=== PATIENT | female | born 1940 | race Caucasian/White ===

== ENCOUNTER → 2017-07-25 07:20 | Outpatient (CLI) | payer MEDICARE, SELFPAY ==
[2017-07-25 08:01] LABS: Alanine Aminotransferase 22 U/L (12-78); Albumin Level 3.8 gm/dL (3.4-5.0); Alkaline Phosphatase 110 U/L (46-116); Anion Gap 11.9 mEq/L (5-15); Aspartate Amino Transferase 16 U/L (15-37); Bilirubin,Total 0.5 mg/dL (0.2-1.0); Blood Urea Nitrogen 19 mg/dL (7-18); Calcium 9.2 mg/dL (8.5-10.1); Carbon Dioxide 26 mmol/L (21.0-32.0); Chloride 106 mmol/L (98-107); Chol/HDL Ratio 1.8 (1-3.5); Cholesterol 155 mg/dL (140-200); Creatinine,Serum 0.99 mg/dL (0.55-1.02); Estimated Glomerular Filt Rate 55 ml/min (>60); GFR (African American) 66 ML/MIN (>60); Globulin 3.7 gm/dl (1.3-3.2); Glucose 118 mg/dL (74-106); HDL Cholesterol 88 mg/dL (29-89); LDL Cholesterol 45 mg/dL (0-130); Potassium 3.9 mmoL/L (3.5-5.1); Sodium 140 mmol/L (136-145); Thyroid Stimulating Hormone 0.81 uIU/ml (0.358-3.740); Total Protein,Serum 7.5 gm/dL (6.4-8.2); Triglycerides 108 mg/dL (30-200); VLDL Cholesterol 22 mg/dL (0-40)
[2017-07-25 08:37] LABS: Hemoglobin A1C 6.3 % (0.0-7.0)
== END ==
PROVIDERS: Visit Provider Family Medicine
DX: E11.9 Type 2 diabetes mellitus without complications (principal); E03.9 Hypothyroidism, unspecified; E78.2 Mixed hyperlipidemia
CPT/HCPCS: 36415; 80053; 80061; 83036; 84443

== ENCOUNTER → 2018-01-25 07:02 | Outpatient (CLI) | payer MEDICARE, SELFPAY ==
[2018-01-25 08:18] LABS: Hemoglobin A1C 6.6 % (0.0-7.0)
[2018-01-25 08:19] LABS: Alanine Aminotransferase 23 U/L (12-78); Albumin Level 3.8 gm/dL (3.4-5.0); Albumin/Globulin Ratio 1.1 (1.1-1.8); Alkaline Phosphatase 107 U/L (46-116); Anion Gap 14.3 mEq/L (5-15); Aspartate Amino Transferase 17 U/L (15-37); Bilirubin,Total 0.6 mg/dL (0.2-1.0); Blood Urea Nitrogen 16 mg/dL (7-18); Calcium 9.3 mg/dL (8.5-10.1); Carbon Dioxide 26 mmol/L (21.0-32.0); Chloride 108 mmol/L (98-107); Chol/HDL Ratio 1.8 (1-3.5); Cholesterol 168 mg/dL (140-200); Creatinine,Serum 1.18 mg/dL (0.55-1.02); Estimated Glomerular Filt Rate 45 ml/min (>60); GFR (African American) 54 ML/MIN (>60); Globulin 3.4 gm/dl (1.3-3.2); Glucose 106 mg/dL (74-106); HDL Cholesterol 91 mg/dL (29-89); LDL Cholesterol 54 mg/dL (0-130); Potassium 4.3 mmoL/L (3.5-5.1); Sodium 144 mmol/L (136-145); Thyroid Stimulating Hormone 0.69 uIU/ml (0.358-3.740); Total Protein,Serum 7.2 gm/dL (6.4-8.2); Triglycerides 115 mg/dL (30-200); VLDL Cholesterol 23 mg/dL (0-40)
== END ==
PROVIDERS: PCP Family Medicine; Visit Provider Family Medicine
DX: E11.9 Type 2 diabetes mellitus without complications (principal); E78.2 Mixed hyperlipidemia; E03.9 Hypothyroidism, unspecified
CPT/HCPCS: 36415; 80053; 80061; 83036; 84443

== ENCOUNTER → 2018-07-30 07:03 | Outpatient (CLI) | payer MEDICARE, SELFPAY ==
[2018-07-30 08:25] LABS: Alanine Aminotransferase 18 U/L (12-78); Albumin Level 3.7 gm/dL (3.4-5.0); Albumin/Globulin Ratio 1.1 (1.1-1.8); Alkaline Phosphatase 108 U/L (46-116); Anion Gap 14.9 mEq/L (5-15); Aspartate Amino Transferase 17 U/L (15-37); Bilirubin,Total 0.4 mg/dL (0.2-1.0); Blood Urea Nitrogen 22 mg/dL (7-18); Calcium 9.2 mg/dL (8.5-10.1); Carbon Dioxide 27 mmol/L (21.0-32.0); Chloride 105 mmol/L (98-107); Chol/HDL Ratio 1.9 (1-3.5); Cholesterol 168 mg/dL (140-200); Creatinine,Serum 0.99 mg/dL (0.55-1.02); Estimated Glomerular Filt Rate 55 ml/min (>60); GFR (African American) 66 ML/MIN (>60); Globulin 3.4 gm/dl (1.3-3.2); Glucose 106 mg/dL (74-106); HDL Cholesterol 90 mg/dL (29-89); LDL Cholesterol 60 mg/dL (0-130); Potassium 3.9 mmoL/L (3.5-5.1); Sodium 143 mmol/L (136-145); Thyroid Stimulating Hormone 0.59 uIU/ml (0.358-3.740); Total Protein,Serum 7.1 gm/dL (6.4-8.2); Triglycerides 92 mg/dL (30-200); VLDL Cholesterol 18 mg/dL (0-40)
[2018-07-30 11:16] LABS: Hemoglobin A1C 6.6 % (0.0-7.0)
== END ==
PROVIDERS: Visit Provider Family Medicine
DX: E11.9 Type 2 diabetes mellitus without complications (principal); E78.2 Mixed hyperlipidemia; E03.9 Hypothyroidism, unspecified
CPT/HCPCS: 36415; 80053; 80061; 83036; 84443

== ENCOUNTER → 2019-01-30 07:22 | Outpatient (CLI) | payer MEDICARE, SELFPAY ==
[2019-01-30 08:09] LABS: Hemoglobin A1C 6.5 % (0.0-7.0)
[2019-01-30 08:45] LABS: Alanine Aminotransferase 19 U/L (12-78); Albumin Level 3.8 gm/dL (3.4-5.0); Albumin/Globulin Ratio 1.1 (1.1-1.8); Alkaline Phosphatase 101 U/L (46-116); Anion Gap 14.1 mEq/L (5-15); Aspartate Amino Transferase 22 U/L (15-37); Bilirubin,Total 0.6 mg/dL (0.2-1.0); Blood Urea Nitrogen 20 mg/dL (7-18); Calcium 9.3 mg/dL (8.5-10.1); Carbon Dioxide 27 mmol/L (21.0-32.0); Chloride 105 mmol/L (98-107); Chol/HDL Ratio 2.1 (1-3.5); Cholesterol 177 mg/dL (140-200); Creatinine,Serum 1.02 mg/dL (0.55-1.02); Estimated Glomerular Filt Rate 53 ml/min (>60); GFR (African American) 64 ML/MIN (>60); Globulin 3.4 gm/dl (1.3-3.2); Glucose 101 mg/dL (74-106); HDL Cholesterol 84 mg/dL (29-89); LDL Cholesterol 71 mg/dL (0-130); Potassium 4.1 mmoL/L (3.5-5.1); Sodium 142 mmol/L (136-145); Thyroid Stimulating Hormone 0.38 uIU/ml (0.358-3.740); Total Protein,Serum 7.2 gm/dL (6.4-8.2); Triglycerides 111 mg/dL (30-200); VLDL Cholesterol 22 mg/dL (0-40)
== END ==
PROVIDERS: Visit Provider Family Medicine
DX: E11.9 Type 2 diabetes mellitus without complications (principal); E78.2 Mixed hyperlipidemia; E03.9 Hypothyroidism, unspecified
CPT/HCPCS: 36415; 80053; 80061; 83036; 84443

== ENCOUNTER → 2019-08-01 07:11 | Outpatient (CLI) | payer MEDICARE, SELFPAY ==
[2019-08-01 11:31] LABS: Alanine Aminotransferase 14 U/L (12-78); Albumin Level 4.2 g/dl (3.5-5.0); Albumin/Globulin Ratio 1.5 (1.1-1.8); Alkaline Phosphatase 108 U/L (38-126); Anion Gap 13.3 mEq/L (5-15); Aspartate Amino Transferase 26 U/L (14-36); Bilirubin,Total 0.5 mg/dl (0.2-1.3); Blood Urea Nitrogen 22 mg/dl (7-17); Calcium 9.8 mg/dl (8.4-10.2); Carbon Dioxide 25 mmol/L (22.0-30.0); Chloride 106 mmol/L (98-107); Chol/HDL Ratio 1.9 (1-3.5); Cholesterol 174 mg/dl (140-200); Estimated Glomerular Filt Rate 61 ml/min (>60); GFR (African American) 73 ML/MIN (>60); Globulin 2.8 g/dL (1.3-3.2); Glucose 106 mg/dl (74-100); HDL Cholesterol 93 mg/dl (40-60); Potassium 4.3 mmoL/L (3.5-5.1); Sodium 140 mmol/L (136-145); Triglycerides 134 mg/dl (30-150); VLDL Cholesterol 27 mg/dL (0-40)
[2019-08-01 11:43] LABS: Direct LDL Cholesterol 64.25 mg/dL (100-129)
[2019-08-01 12:01] LABS: Thyroid Stimulating Hormone 0.75 uIU/mL (0.465-4.68)
[2019-08-01 13:36] LABS: Hemoglobin A1C 6.6 % (4.0-6.0)
== END ==
PROVIDERS: Visit Provider Family Medicine
DX: E03.9 Hypothyroidism, unspecified (principal); E11.9 Type 2 diabetes mellitus without complications; E78.2 Mixed hyperlipidemia
CPT/HCPCS: 36415; 80053; 80061; 83036; 84443

== ENCOUNTER → 2020-02-19 07:03 | Outpatient (CLI) | payer MEDICARE, SELFPAY ==
[2020-02-19 08:38] LABS: Chloride 106 mmol/L (98-107); Potassium 4.3 mmoL/L (3.5-5.1); Sodium 142 mmol/L (136-145)
[2020-02-19 08:41] LABS: Alanine Aminotransferase 18 U/L (12-78); Albumin Level 4.1 g/dl (3.5-5.0); Albumin/Globulin Ratio 1.4 (1.1-1.8); Alkaline Phosphatase 104 U/L (38-126); Anion Gap 15.3 mEq/L (5-15); Aspartate Amino Transferase 32 U/L (14-36); Bilirubin,Total 0.8 mg/dl (0.2-1.3); Blood Urea Nitrogen 23 mg/dl (7-17); Calcium 9.7 mg/dl (8.4-10.2); Carbon Dioxide 25 mmol/L (22.0-30.0); Chol/HDL Ratio 1.9 (1-3.5); Cholesterol 166 mg/dl (140-200); Estimated Glomerular Filt Rate 54 ml/min (>60); GFR (African American) 65 ML/MIN (>60); Glucose 114 mg/dl (74-100); HDL Cholesterol 88 mg/dl (40-60); Total Protein,Serum 7.1 g/dl (6.3-8.2); Triglycerides 138 mg/dl (30-150); VLDL Cholesterol 28 mg/dL (0-40)
[2020-02-19 08:52] LABS: Direct LDL Cholesterol 57.72 mg/dL (100-129)
[2020-02-19 09:13] LABS: Thyroid Stimulating Hormone 0.32 uIU/mL (0.465-4.68)
[2020-02-19 10:03] LABS: Hemoglobin A1C 6.6 % (4.0-6.0)
== END ==
PROVIDERS: Visit Provider Family Medicine
DX: E03.9 Hypothyroidism, unspecified (principal); E78.2 Mixed hyperlipidemia; E11.9 Type 2 diabetes mellitus without complications
CPT/HCPCS: 36415; 80053; 80061; 83036; 84443

== ENCOUNTER → 2021-08-12 07:03 | Outpatient (CLI) | payer MEDICARE, SELFPAY ==
[2021-08-12 09:17] LABS: Alanine Aminotransferase 15 U/L (12-78); Albumin Level 4.2 g/dl (3.5-5.0); Albumin/Globulin Ratio 1.6 (1.1-1.8); Alkaline Phosphatase 104 U/L (38-126); Anion Gap 10.2 mEq/L (5-15); Aspartate Amino Transferase 26 U/L (14-36); Bilirubin,Total 0.6 mg/dl (0.2-1.3); Blood Urea Nitrogen 25 mg/dl (7-17); Calcium 9.3 mg/dl (8.4-10.2); Carbon Dioxide 27 mmol/L (22.0-30.0); Chloride 108 mmol/L (98-107); Chol/HDL Ratio 1.7 (1-3.5); Cholesterol 162 mg/dl (140-200); Estimated Glomerular Filt Rate 60 ml/min (>60); GFR (African American) 73 ML/MIN (>60); Globulin 2.6 g/dL (1.3-3.2); Glucose 103 mg/dl (74-100); HDL Cholesterol 95 mg/dl (40-60); Potassium 4.2 mmoL/L (3.5-5.1); Sodium 141 mmol/L (136-145); Total Protein,Serum 6.8 g/dl (6.3-8.2); Triglycerides 106 mg/dl (30-150); VLDL Cholesterol 21 mg/dL (0-40)
[2021-08-12 09:28] LABS: Direct LDL Cholesterol 44.74 mg/dL (100-129)
[2021-08-12 09:48] LABS: Thyroid Stimulating Hormone 1.65 uIU/mL (0.465-4.68)
[2021-08-12 09:50] LABS: Hemoglobin A1C 6.2 % (4.0-6.0)
== END ==
PROVIDERS: Visit Provider Family Medicine
DX: E03.9 Hypothyroidism, unspecified (principal); E78.2 Mixed hyperlipidemia; E11.9 Type 2 diabetes mellitus without complications
CPT/HCPCS: 36415; 80053; 80061; 83036; 84443

== ENCOUNTER → 2022-02-14 07:08 | Outpatient (CLI) | payer MEDICARE, SELFPAY ==
[2022-02-14 08:30] LABS: Alanine Aminotransferase 16 U/L (12-78); Albumin Level 3.8 g/dl (3.5-5.0); Albumin/Globulin Ratio 1.4 (1.1-1.8); Alkaline Phosphatase 112 U/L (38-126); Anion Gap 14.6 mEq/L (5-15); Aspartate Amino Transferase 28 U/L (14-36); Bilirubin,Total 0.8 mg/dl (0.2-1.3); Blood Urea Nitrogen 19 mg/dl (7-17); Calcium 9.1 mg/dl (8.4-10.2); Carbon Dioxide 25 mmol/L (22.0-30.0); Chloride 105 mmol/L (98-107); Chol/HDL Ratio 1.5 (1-3.5); Cholesterol 130 mg/dl (140-200); Estimated Glomerular Filt Rate 53 ml/min (>60); GFR (African American) 65 ML/MIN (>60); Globulin 2.8 g/dL (1.3-3.2); Glucose 105 mg/dl (74-100); HDL Cholesterol 85 mg/dl (40-60); Potassium 3.6 mmoL/L (3.5-5.1); Sodium 141 mmol/L (136-145); Total Protein,Serum 6.6 g/dl (6.3-8.2); Triglycerides 89 mg/dl (30-150); VLDL Cholesterol 18 mg/dL (0-40)
[2022-02-14 08:35] LABS: Hemoglobin A1C 5.9 % (4.0-6.0)
[2022-02-14 08:42] LABS: Direct LDL Cholesterol < 30.00 mg/dL (100-129)
[2022-02-14 09:00] LABS: Thyroid Stimulating Hormone 0.96 uIU/mL (0.465-4.68)
== END ==
PROVIDERS: PCP Family Medicine; Visit Provider Family Medicine
DX: E03.9 Hypothyroidism, unspecified (principal); E11.9 Type 2 diabetes mellitus without complications; E78.2 Mixed hyperlipidemia; R03.0 Elevated blood-pressure reading, without diagnosis of hypertension
CPT/HCPCS: 36415; 80053; 80061; 83036; 84443

== ENCOUNTER 2022-04-30 00:23 | Emergency (ER) | payer MEDICARE, SELFPAY ==
[2022-04-30 00:25] VITALS: BP 163/75; PULSE 113; RESP 16; TEMP 36.6; O2SAT 96; BMI 26.6
--- NOTE | 2022-04-30 01:02 | XR_ITS ---
PROCEDURE INFORMATION: Exam: XR Chest Exam date and time: 04/30/2022 1:24 AM Age: 81 years old Clinical indication: Other: Weakness TECHNIQUE: Imaging protocol: Radiologic exam of the chest. Views: 1 view. COMPARISON: No relevant prior studies available. FINDINGS: Lungs: Left retrocardiac lung is not well evaluated. Otherwise, there is no consolidation. No mass. Pleural spaces: Unremarkable. No pleural effusion. No pneumothorax. Heart/Mediastinum: Moderate hiatal hernia is suspected. Calcified left mediastinal lymph node. The heart is not enlarged. Vasculature: Unremarkable. Bones/joints: There is a moderate scoliosis of the midthoracic spine convex right. Other findings: The patient is rotated to the left. IMPRESSION: 1. There is no acute cardiopulmonary finding. The left retrocardiac region is not well evaluated. 2. Suspected moderate hiatal hernia. 3. Thoracic scoliosis.
[2022-04-30 01:10] LABS: Basophils % 0.5 % (0.1-2.0); Eosinophils # 0.1 K/mm3 (0.0-0.4); Eosinophils % 0.9 % (0.1-12.0); Hematocrit 37.4 % (37.0-47.0); Hemoglobin 12.3 g/dL (12.2-16.2); Lymphocytes # 2.1 K/mm3 (0.7-4.5); Lymphocytes % 26.1 % (10-50); Mean Corpuscular Hemoglobin 28.9 pg (27.0-31.2); Mean Corpuscular Volume 87.4 fl (81-99); Mean Platelet Volume 8.3 fl (7.4-10.4); Monocytes # 0.4 K/mm3 (0.1-1.0); Monocytes % 4.8 % (1.7-9.3); Neutrophils # 5.5 K/mm3 (1.8-7.8); Neutrophils % 67.7 % (37.0-80.0); Platelet Count 385 K/mm3 (142-424); Red Blood Count 4.28 M/mm3 (4.20-5.40); Red Cell Distribution Width 15.4 % (11.5-17.5); White Blood Count 8.2 K/mm3 (4.8-10.8)
[2022-04-30 01:17] LABS: Anion Gap 14.2 mEq/L (5-15); Blood Urea Nitrogen 23 mg/dl (7-17); Calcium 9.6 mg/dl (8.4-10.2); Carbon Dioxide 26 mmol/L (22.0-30.0); Chloride 103 mmol/L (98-107); Creatinine Clearance Estimated 53 mL/min (50-200); Estimated Glomerular Filt Rate 60 ml/min (>60); GFR (African American) 73 ML/MIN (>60); Glucose 110 mg/dl (74-100); Potassium 3.2 mmoL/L (3.5-5.1); Sodium 140 mmol/L (136-145)
[2022-04-30 01:37] LABS: Troponin I < 0.01 ng/ml (0.00-0.034)
--- NOTE | 2022-04-30 01:38 | ECG_ITS ---
APPROVED REPORT Exam: Resting ECG HR:89 bpm ECG Measurements Heart Rate 89 AXES AL 137 P 57 QRSd 88 QRS 38 QT 374 T 30 QTc 421 Conclusion SINUS RHYTHM WITH OCCASIONAL ECTOPIC PREMATURE COMPLEXES NONSPECIFIC T-WAVE ABNORMALITY BORDERLINE ECG UNCONFIRMED REPORT Electronically signed by : Enrique Epstein MD 04/30/2022 10:07:20
--- NOTE | 2022-04-30 01:50 | HMH.EDGENADL ---
Discharge Plan Disposition Patient Disposition: Home, Self-Care Condition: Good Prescriptions Prescriptions: No Action metformin 500 mg tablet 500 mg PO BID Label Comments: TAKE 1 TABLET BY MOUTH ONCE DAILY simvastatin 40 mg tablet 40 mg PO DAILY Label Comments: TAKE 1 TABLET BY MOUTH ONCE DAILY AT BEDTIME levothyroxine 75 mcg tablet 1 mcg PO DAILY Label Comments: TAKE 1 TABLET BY MOUTH ONCE DAILY Referrals Follow up/Referrals: Vitor Greenfield MD [Primary Care Provider] - See instructions Activity Restrictions/Add. Instructions Additional Instructions/Restrictions: Continue to take as much food and drink as you can tolerate to prevent dehydration. If you have any other concerning signs or symptoms, return to the emergency department for further evaluation, or your primary care provider. Make sure to see your primary care doctor within 72 hours to establish care for this visit to the emergency department and ensure improvement of symptoms. Clinical Impressions Clinical Impression: Acute dehydration, Acute hypokalemia Instructions Patient Instructions: DI for Diarrhea and Traveler's Diarrhea -- Adult, DI for Diarrhea and Traveler's Diarrhea -- Child, DI for Nausea -- Adult, DI for Nausea -- Child Discharge ED Provider: Aj Shin General Adult HPI General Chief complaint: Nausea/Vomiting/Diarrhea Stated complaint: diarrhea, possible dehydration Time Seen by Provider: 04/30/22 00:30 Mode of Arrival: Family Vehicle Source of Information: Patient Limitations: No Limitations Description of Symptoms (Recalled from ER Triage Doc. by RN): 81 yo female presents with CC of possible dehydration. Daughter reports that patient was diagnosed with COVID approx 10 days ago and has developed diarrhea as a result. Patient has neglected to maintain hydration because she can't make it to the bathroom in time . Patient appears a&ox3. Verbal, speech is clear. Skin w/d,pale pink. No dyspnea/angina/active vomiting or fever. Skin turgor poor at time of triage. History of Present Illness HPI narrative: This is an 81-year-old female with history of hypothyroidism, diabetes, hyperlipidemia, hypertension presenting with weakness and dehydration. Patient's daughter is at bedside and helps with history. Per patient, she has been having multiple bowel movements over the past couple of days that are nonbloody, nonbilious, normal in color and firm, but are happening far more frequently than usual. She has not wanted to go to the bathroom anymore, so she has stopped eating and drinking so much because it goes right through me. Daughter states that patient has been refusing to take p.o. intake whether fluids or solids out of concern for having bowel movements. Because of this, patient has been using objects around the house to help her ambulate, complaining of feeling weak. Patient has not had fevers, chills, nausea, vomiting, dysuria, hematuria, frankly bloody stools, dark-colored stools, diarrhea, any sick contacts, recent medication changes, or any other concerning history. Related Data Home Medications Medication Instructions Recorded Confirmed levothyroxine 75 mcg tablet 1 mcg PO DAILY thyroid 04/30/22 04/30/22 metformin 500 mg tablet 500 mg PO BID Diabetes 04/30/22 04/30/22 simvastatin 40 mg tablet 40 mg PO DAILY Cholesterol 04/30/22 04/30/22 Allergies Allergy/AdvReac Type Severity Reaction Status Date / Time No Known Allergies Allergy Verified 04/30/22 01:27 [facility] Disclaimer: The information contained in this section may have been updated after the patient was seen, as this information can be updated by other users. Social History Smoking Status: Never smoker alcohol intake: never current occupational status: unemployed Travel in the last 8 weeks: None ROS Obtained: Yes All systems reviewed & no additional complaints except as documented Physical Exam Genera
[2022-04-30 02:59] VITALS: BP 145/79; PULSE 100; RESP 16; TEMP 36.6; O2SAT 96
== END 2022-04-30 03:02 | disposition home or self-care (01) ==
PROVIDERS: Emergency Provider Emergency Medicine; PCP Family Medicine
DX: E87.6 Hypokalemia (principal); E86.0 Dehydration; Z79.84 Long term (current) use of oral hypoglycemic drugs; Z79.899 Other long term (current) drug therapy; E03.9 Hypothyroidism, unspecified; E11.9 Type 2 diabetes mellitus without complications; E78.5 Hyperlipidemia, unspecified; I10 Essential (primary) hypertension
CPT/HCPCS: 71045; 80048; 84484; 85025; 93005; 96365; 99284

== ENCOUNTER 2022-05-05 01:03 | Inpatient (IN) | payer MEDICARE, SELFPAY ==
[2022-05-05] VITALS (20 sets, daily range): BP systolic 106–149; BP diastolic 59–87; PULSE 58–162; RESP 15–22; TEMP 36.4–36.8; O2SAT 95–98; BMI 25.7; BMI 24.9
--- NOTE | 2022-05-05 01:08 | XR_ITS ---
PROCEDURE INFORMATION: Exam: XR Chest Exam date and time: 05/05/2022 1:34 AM Age: 81 years old Clinical indication: Other: Generalized weakness TECHNIQUE: Imaging protocol: Radiologic exam of the chest. Views: 1 view. COMPARISON: CR XR CHEST PORTABLE 04/30/2022 1:24 AM FINDINGS: Lungs: Lung volumes are mildly improved. There is mild increase in strandy densities in the left lower lobe since prior exam. Lungs are otherwise stable. Pleural spaces: No pleural effusions or appreciable adenopathy. Negative for pneumothorax. Heart/Mediastinum: Cardiac silhouette and pulmonary vasculature are within range of normal. Moderate hiatal hernia is stable. Calcified mediastinal lymph nodes indicate prior granulomatous disease. Bones/joints: There is no evidence of acute fracture. There is a mild S-shaped thoracolumbar scoliosis. IMPRESSION: 1. Mildly improved lung volumes. 2. Mild increase in strandy densities in the left lower lobe. 3. Stable small to moderate hiatal hernia.
--- NOTE | 2022-05-05 01:16 | HMH.EDWEAK ---
Discharge Plan Disposition Patient Disposition: Admitted As Inpatient Chief Complaint: Weakness Clinical Impressions Clinical Impression: Atrial fibrillation with rapid ventricular response, Hypothyroidism, COVID-19 Discharge ED Provider: Gabriel Solorzano HPI General Chief complaint: Weakness Stated complaint: weakness Time Seen by Provider: 05/05/22 01:16 Mode of Arrival: Ambulatory Source of Information: Patient Limitations: No Limitations Description of Symptoms (Recalled from ER Triage Doc. by RN): pt c/o weakness pt denies any pain n/v/d. pt was seen in er on 04/30 for dehydration and low potassium. History of Present Illness HPI Narrative: not feeling well tonight w/o chest pain - recent ed visit and has pos covid-19 at home - no known hx of a fib MD Complaint: generalized weakness Onset (ago): hour(s) Duration: intermittent Migration: none Severity: moderate Associated symptoms: denies other symptoms Related Data Home Medications Medication Instructions Recorded Confirmed levothyroxine 75 mcg tablet 75 mcg PO DAILY thyroid 04/30/22 05/05/22 metformin 500 mg tablet 500 mg PO BID Diabetes 04/30/22 05/05/22 simvastatin 40 mg tablet 40 mg PO DAILY Cholesterol 04/30/22 05/05/22 Allergies Allergy/AdvReac Type Severity Reaction Status Date / Time No Known Allergies Allergy Verified 04/30/22 01:27 [facility] Disclaimer: The information contained in this section may have been updated after the patient was seen, as this information can be updated by other users. Social History (Updated 04/30/22 @ 02:52 by Aj Shin MD) Smoking Status: Never smoker alcohol intake: never current occupational status: unemployed Travel in the last 8 weeks: None ROS Obtained: Yes All systems reviewed & no additional complaints except as documented Physical Exam General General appearance: alert Head Head exam: normocephalic Eye Eye exam: Present PERRL and EOMI ENT ENT exam: Present mucous membranes dry Neck Neck exam: Present trachea midline Respiratory Respiratory exam: Present normal lung sounds bilaterally; Absent respiratory distress Cardiovascular Cardiovascular exam: Present irregular rhythm, systolic murmur and +S4 Abdominal Exam Abdominal exam: Present soft Extremities Exam Extremities exam: Absent calf tenderness Neurological Exam Neurological exam: Present alert and CN II-XII intact Psychiatric Psychiatric exam: Present normal affect Skin Skin exam: Absent rash Medical Decision Making Medical Records Medical records reviewed: Yes I reviewed the patient's medical records. Tim Inquiry Pt receiving controlled substance: No Vital Signs: 05/05/22 01:03 05/05/22 01:30 05/05/22 01:45 Temperature 97.6 F Temperature Source Oral Pulse Rate 115 H 107 H Pulse Rate [Right] 93 H Respiratory Rate 16 16 17 Blood Pressure 128/65 131/74 Blood Pressure [Right Arm] 136/64 Blood Pressure Mean 106 93 Blood Pressure Mean [Right Arm] 88 02 Sat by Pulse Oximetry 96 97 96 05/05/22 02:00 Temperature Temperature Source Pulse Rate 109 H Pulse Rate [Right] Respiratory Rate 16 Blood Pressure 129/76 Blood Pressure [Right Arm] Blood Pressure Mean 92 Blood Pressure Mean [Right Arm] 02 Sat by Pulse Oximetry 96 Lab Data Lab results reviewed: Yes I reviewed the patient's lab results. Lab Results 05/05/22 01:10: WBC 8.3, RBC 4.55, Hgb 12.8, Hct 40.8, MCV 89.6, MCH 28.1, MCHC 31.3 L, RDW 15.3, Plt Count 600 H, MPV 8.5, Neut % (Auto) 66.8, Lymph % (Auto) 25.0, [place] % (Auto) 5.1, Eos % (Auto) 2.4, Baso % (Auto) 0.8, Neut # (Auto) 5.5, Lymph # (Auto) 2.1, [place] # (Auto) 0.4, Eos # (Auto) 0.2, Baso # (Auto) 0.1, ESR 22 05/05/22 01:10: Sodium 140, Potassium 3.2 L, Chloride 104, Carbon Dioxide 25, Anion Gap 14.2, BUN 13, Creatinine 0.90, Estimated Creat Clear 48, Estimated GFR 60, Est GFR ( Amer) 73, Glucose 115 H, Calcium 9.5, Total Bilirubin 0.9, AST 26, ALT 17,
[2022-05-05 01:18] LABS: Influenza A, PCR Not Detected (NotDetected); Influenza B, PCR Not Detected (NotDetected)
[2022-05-05 01:18] LABS: Basophils # 0.1 K/mm3 (0-0.2); Basophils % 0.8 % (0.1-2.0); Eosinophils # 0.2 K/mm3 (0.0-0.4); Eosinophils % 2.4 % (0.1-12.0); Hematocrit 40.8 % (37.0-47.0); Hemoglobin 12.8 g/dL (12.2-16.2); Lymphocytes # 2.1 K/mm3 (0.7-4.5); Mean Corpuscular HGB Conc 31.3 g/dL (31.8-35.4); Mean Corpuscular Hemoglobin 28.1 pg (27.0-31.2); Mean Corpuscular Volume 89.6 fl (81-99); Mean Platelet Volume 8.5 fl (7.4-10.4); Monocytes # 0.4 K/mm3 (0.1-1.0); Monocytes % 5.1 % (1.7-9.3); Neutrophils # 5.5 K/mm3 (1.8-7.8); Neutrophils % 66.8 % (37.0-80.0); Platelet Count 600 K/mm3 (142-424); Red Blood Count 4.55 M/mm3 (4.20-5.40); Red Cell Distribution Width 15.3 % (11.5-17.5); White Blood Count 8.3 K/mm3 (4.8-10.8)
--- NOTE | 2022-05-05 01:19 | PC.NURSE ---
Dr. Solorzano at speaking with pt/family at this time.
--- NOTE | 2022-05-05 01:22 | PC.NURSE ---
RAD at for CXR
[2022-05-05 01:27] LABS: Alanine Aminotransferase 17 U/L (12-78); Albumin Level 4.2 g/dl (3.5-5.0); Albumin/Globulin Ratio 1.3 (1.1-1.8); Alkaline Phosphatase 130 U/L (38-126); Anion Gap 14.2 mEq/L (5-15); Aspartate Amino Transferase 26 U/L (14-36); Bilirubin,Total 0.9 mg/dl (0.2-1.3); Blood Urea Nitrogen 13 mg/dl (7-17); Calcium 9.5 mg/dl (8.4-10.2); Carbon Dioxide 25 mmol/L (22.0-30.0); Chloride 104 mmol/L (98-107); Creatinine Clearance Estimated 48 mL/min (50-200); Estimated Glomerular Filt Rate 60 ml/min (>60); GFR (African American) 73 ML/MIN (>60); Globulin 3.3 g/dL (1.3-3.2); Glucose 115 mg/dl (74-100); Lactic Acid 1.6 mmol/L (0.7-2.1); Potassium 3.2 mmoL/L (3.5-5.1); Sodium 140 mmol/L (136-145); Total Protein,Serum 7.5 g/dl (6.3-8.2)
[2022-05-05 01:32] LABS: C-Reactive Protein 13.4 mg/L (0-4)
[2022-05-05 01:41] LABS: Troponin I < 0.01 ng/ml (0.00-0.034)
[2022-05-05 01:42] LABS: Coronavirus 19, PCR Detected (NotDetected)
[2022-05-05 01:45] LABS: Procalcitonin 0.148 ng/mL (0.0-2.0)
[2022-05-05 02:00] LABS: Thyroid Stimulating Hormone 0.75 uIU/mL (0.465-4.68)
[2022-05-05 02:03] LABS: Erythrocyte Sedimentation Rate 22 mm/hr (0-30)
--- NOTE | 2022-05-05 02:10 | PC.NURSE ---
Dr. Solorzano on phone with Dr. Epstein.
--- NOTE | 2022-05-05 02:11 | PC.NURSE ---
Patient admitted to [address] Epstein [address] Dr[address] Sahu with admitting dx of new onset of a-fib.
[2022-05-05 02:40] LABS: Microscopic, Urine URINE MICROSCOPIC (MICROSCOPIC)
[2022-05-05 02:42] LABS: Appearance,Urine CLEAR (Clear); Bilirubin,Urine Negative (Negative); Blood, Urine Negative (Negative); Color,Urine YELLOW (Yellow); Glucose,Urine (UA) Negative (Negative); Ketones,Urine Negative (Negative); Leukocyte Esterase,Urine Negative (Negative); Nitrate,Urine Negative (Negative); Protein,Urine Negative (Negative); Specific Gravity, Urine 1.015 (1.005-1.030); Urobilinogen,Urine 0.2 EU/dl (0.2)
[2022-05-05 02:56] LABS: NT Pro Brain Natriuretic Pep. 168 pg/mL (0-450)
[2022-05-05 03:14] LABS: Bacteria,Urine Trace /lpf; WBC,Urine Occasional #/hpf (0-3)
--- NOTE | 2022-05-05 03:42 | ECG_ITS ---
APPROVED REPORT Exam: Resting ECG HR:125 bpm ECG Measurements Heart Rate 125 AXES QRSd 87 QRS 7 QT 279 T -29 QTc 353 Conclusion ATRIAL FIBRILLATION WITH RAPID VENTRICULAR RESPONSE MODERATE VOLTAGE CRITERIA FOR LVH, CONSIDER NORMAL VARIANT [MEETS CRITERIA IN ONE OF: R(aVL), S(V1), R(V5), R(V5/V6)+S(V1)] NONSPECIFIC ST & T-WAVE ABNORMALITY ABNORMAL RHYTHM ECG UNCONFIRMED REPORT Electronically signed by : Enrique Epstein MD 05/06/2022 16:52:51
--- NOTE | 2022-05-05 03:56 | ECG_ITS ---
APPROVED REPORT Exam: Resting ECG HR:78 bpm ECG Measurements Heart Rate 78 AXES AK 154 P 45 QRSd 93 QRS 31 QT 388 T 34 QTc 421 Conclusion SINUS RHYTHM WITH OCCASIONAL VENTRICULAR PREMATURE COMPLEXES BORDERLINE ECG UNCONFIRMED REPORT Electronically signed by : Enrique Epstein MD 05/06/2022 16:52:40
--- NOTE | 2022-05-05 04:07 | PC.NURSE ---
Pt noted to convert from afib to NSR. EKG obtained and confirmed NSR with PVCs. Lucian notified. New orders received to given Diltiazem PO 60 mg now and turn gtt off in one hour.
[2022-05-05 06:32] LABS: Chloride 106 mmol/L (98-107)
[2022-05-05 06:33] LABS: Potassium 3.3 mmoL/L (3.5-5.1); Sodium 140 mmol/L (136-145)
[2022-05-05 06:36] LABS: Anion Gap 13.3 mEq/L (5-15); Blood Urea Nitrogen 10 mg/dl (7-17); Calcium 8.8 mg/dl (8.4-10.2); Carbon Dioxide 24 mmol/L (22.0-30.0); Creatinine Clearance Estimated 47 mL/min (50-200); Estimated Glomerular Filt Rate 69 ml/min (>60); GFR (African American) 84 ML/MIN (>60); Glucose 103 mg/dl (74-100); Magnesium 1.9 mg/dl (1.6-2.3)
[2022-05-05 06:37] LABS: Basophils % 0.4 % (0.1-2.0); Eosinophils # 0.1 K/mm3 (0.0-0.4); Eosinophils % 0.7 % (0.1-12.0); Hematocrit 34.9 % (37.0-47.0); Lymphocytes # 1.2 K/mm3 (0.7-4.5); Lymphocytes % 12.3 % (10-50); Mean Corpuscular HGB Conc 32.5 g/dL (31.8-35.4); Mean Corpuscular Hemoglobin 28.3 pg (27.0-31.2); Mean Corpuscular Volume 87.2 fl (81-99); Mean Platelet Volume 8.5 fl (7.4-10.4); Monocytes # 0.5 K/mm3 (0.1-1.0); Monocytes % 5.5 % (1.7-9.3); Neutrophils # 7.7 K/mm3 (1.8-7.8); Neutrophils % 81.1 % (37.0-80.0); Platelet Count 535 K/mm3 (142-424); Red Blood Count 4.01 M/mm3 (4.20-5.40); Red Cell Distribution Width 15.3 % (11.5-17.5); White Blood Count 9.5 K/mm3 (4.8-10.8)
[2022-05-05 06:38] LABS: Hemoglobin 11.4 g/dL (12.2-16.2)
[2022-05-05 07:08] LABS: POC Glucose,Bedside 111 (70-110)
--- NOTE | 2022-05-05 08:00 | CA_ITS ---
APPROVED REPORT EXAM: Comprehensive 2D, Doppler, and color-flow Echocardiogram Eye Glass Frame Polisher: Suzan Sanders CRT Ht: 5 ft 4 in Wt: 150lbs BSA: 1.73 BP: 129/76 mmHg Indications: Covid +,Atrial Fibrillation, Diabetes, Hyperlipidemia 2D Dimensions LVOT 1.90 cm (M/F) 1.5-2.5 LA Volume 34.40 mL LA Volume Index 19.40 mL/m2 (M/F) 16-34 M-Mode Dimensions RVDd 2.52 cm (0.9-2.6) LA Diam 2.47 cm (1.9-4.0) LVDd 4.41 cm (3.5-5.7) Ao Diam 3.64 cm (2.0-3.7) LVDs 2.96 cm (3.5-5.7) IVSd 1.36 cm (0.6-1.1) PWd 0.72 cm (0.6-1.1) EF (Teich) 61.60% FS 32.90% EDV (Teich) 88.20 mL TAPSE 2.22 (<1.7) ESV (Teich) 33.90 mL LV Diastology E Decel Time 217.00 (160-240 msec) E/A Ratio 0.72 MED E' 8.10 (< 7 cm/sec) MED A' 12.90 cm/s E'/MED E' Ratio 8.10 (>14) LAT E' 6.80 (<10 cm/sec) LAT A' 12.80 cm/s E/LAT E' Ratio 9.65 (>14) Aortic Valve AI PHT 658.00 ms AO Peak GR. 7.30 mmHg Mitral Valve MV A Velocity 91.00 (40-130 cm/s) E/A Ratio 0.72 MV Decel. Time 217.00 (160-240 ms) Pulmonary Valve PV Peak Velocity 116.00 (50-150 cm/s) Tricuspid Valve TR P. Velocity 337.00 cm/s RAP Estimate 10.00 mmHg RVSP 55.50 mmHg Left Ventricle Left atrium is mildly enlarged, left ventricle is normal size mild concentric left ventricular hypertrophy, estimated ejection fraction 55% with no regional wall motion abnormality, grade 1 diastolic dysfunction seen without tissue Doppler evidence of raise left atrial pressure. Right Ventricle Right atrium and right ventricle are normal size and contractility. Aortic Valve Aortic valve is minimally thickened and fibrosed there is no aortic stenosis, there is trace aortic insufficiency. Mitral Valve Mitral valve is grossly normal, there is trace mitral regurgitation Tricuspid Valve Tricuspid valve grossly normal, there is trace tricuspid regurgitation, tricuspid regurgitation jet velocity is inadequate for calculation of the right ventricular systolic pressure. Pulmonic Valve Pulmonic valve is poorly visualized Great Vessels Aortic root is normal size. Pericardium No significant pericardial effusion noted. Inferior vena cava is normal size with normal inspiratory collapse. Conclusion 1. Mildly enlarged left atrium, normal left ventricular size, mild concentric left ventricular hypertrophy, estimated ejection fraction 55% with no regional wall motion abnormality, grade 1 diastolic dysfunction seen without tissue Doppler evidence of raise left atrial pressure. 2. Trace aortic, mitral and tricuspid regurgitation. 3. No significant pericardial effusion noted. 4. Inferior vena cava is normal size with normal inspiratory collapse. Electronically signed by : Mikael Jung MD 05/06/2022 08:51:51
--- NOTE | 2022-05-05 08:44 | EXP.HP ---
History of Present Illness *Admission Date: 05/05/22 *Reason for visit:: nausea, feeling bad *History of present illness: Ms. Millard is an 81-year-old female who tested positive for COVID the Monday after Thanks. Her daughter states that she had a very mild course of COVID with mainly just sinus congestion and a cough. She states she has not wanted to eat or drink since having COVID and last Monday, began feeling poorly and was taken to the emergency room. All testing was normal except for her potassium, which was low. She was given potassium in the ER and sent home. Her daughter states the past few days she has woken up feeling nauseated and weak. She has also had some lower abdominal pain and felt the need to urinate but could not. She brought her to the emergency room again yesterday. She was found at that time to be in A. fib with RVR with a rate of 150. She was admitted and started on a Cardizem drip. A catheter was placed and she had quite a bit of output. Her daughter states she converted to normal sinus rhythm this morning. Her Cardizem drip has been discontinued and she has remained in normal sinus rhythm. At this time she feels well. She still does not want to eat. [facility] Medical History (Updated 05/05/22 @ 09:05 by Erik Sahu MD) Diabetes Hyperlipidemia Hypothyroidism Surgical History History of cholecystectomy Family History No significant family history Social History Smoking Status: Former smoker alcohol intake: never current occupational status: unemployed Travel in the last 8 weeks: None Review of Systems Constitutional Constitutional: Denies body ache(s), Denies chills, Reports fatigue, Denies fever(s), Denies headache(s) and Reports weakness Eyes Eyes: Denies blurry vision and Denies diplopia ENT Ears, Nose, Mouth, and Throat: Denies headache(s), Reports nasal congestion, Denies sore throat and Denies vertigo *Cardiovascular Cardiovascular: Denies chest pain and Denies dyspnea *Respiratory Respiratory: Denies dyspnea *Gastrointestinal Gastrointestinal: Denies abdominal pain, Reports nausea and Denies vomiting *Genitourinary Genitourinary: Reports difficulty voiding *Musculoskeletal Musculoskeletal: Denies arthralgias and Denies myalgias *Neurologic Neurologic: Denies headache(s), Denies vertigo and Reports weakness Endocrine Endocrine: Reports fatigue Meds Home Medications and Allergies Home Medications Medication Instructions Recorded Confirmed Type levothyroxine 75 mcg tablet 75 mcg PO DAILY thyroid 04/30/22 05/05/22 History metformin 500 mg tablet 500 mg PO BID Diabetes 04/30/22 05/05/22 History simvastatin 40 mg tablet 40 mg PO DAILY Cholesterol 04/30/22 05/05/22 History New Prescriptions to Start Prescriptions: Allergies Allergy/AdvReac Type Severity Reaction Status Date / Time No Known Allergies Allergy Verified 04/30/22 01:27 Exam Data for Last 24 hours Vital signs and Labs for Last 24 Hours: Temp Pulse Resp BP Pulse Ox 97.7 F 90 16 149/87 H 96 05/05/22 03:30 05/05/22 06:00 05/05/22 06:00 05/05/22 06:00 05/05/22 06:00 Laboratory Results - last 24 hr 05/05/22 01:10: WBC 8.3, RBC 4.55, Hgb 12.8, Hct 40.8, MCV 89.6, MCH 28.1, MCHC 31.3 L, RDW 15.3, Plt Count 600 H, MPV 8.5, Neut % (Auto) 66.8, Lymph % (Auto) 25.0, [place] % (Auto) 5.1, Eos % (Auto) 2.4, Baso % (Auto) 0.8, Neut # (Auto) 5.5, Lymph # (Auto) 2.1, [place]nn # (Auto) 0.4, Eos # (Auto) 0.2, Baso # (Auto) 0.1, ESR 22 05/05/22 01:10: Sodium 140, Potassium 3.2 L, Chloride 104, Carbon Dioxide 25, Anion Gap 14.2, BUN 13, Creatinine 0.90, Estimated Creat Clear 48, Estimated GFR 60, Est GFR ( Amer) 73, Glucose 115 H, Calcium 9.5, Total Bilirubin 0.9, AST 26, ALT 17, Alkaline Phosphatase 130 H, Troponin I < 0.01, C-React
--- NOTE | 2022-05-05 09:23 | EXP.CARD.CON ---
History of Present Illness History of Present Illness Consult date: 05/05/22 Requesting physician: Erik Sahu Chief complaint: Weakness, unable to void, nausea and decreased appetite Additional Medical History:: Significant past medical history: Diabetes mellitus Hyperlipidemia Hypothyroidism History of present illness: 81-year-old white female with above past medical history presented to emergency department last night with daughter with complaints of generalized weakness, decreased appetite, and inability to void. Daughter reports patient was diagnosed with COVID on the Monday after Thanksgi. States her symptoms were pretty mild with just mainly sinus congestion and a cough. Daughter reports since then patient has had decreased appetite and generalized weakness. Last Monday patient began to feel poorly and was taken to the ER and diagnosed with hypokelemia and dehydration. Patient was given potassium in ER and DC'd home. Since then has continued to have generalized weakness and nausea. Yesterday patient started complaining of lower abdominal pressure and inability to void prompting a second ER eval. Upon presentation to ER patient was found to be in A. fib RVR with a rate of 150. Patient was started on Cardizem drip and admitted for further evaluation. Shortly after being placed on Cardizem drip patient converted to normal sinus rhythm. Patient and daughter denies history of A. fib. Patient denies symptoms of chest pain shortness of breath or palpitations. Chest x-ray negative for acute cardiopulmonary process. Significant labs as follow: Hemoglobin 11.4, platelet count 535, potassium 3.3 Free T4 2.3, creatinine 0.8, and COVID positive on 05/04/2020. This morning patient remains in normal sinus rhythm with a rate in the 70s, continues to deny symptoms. [facility] Disclaimer: The information contained in this section may have been updated after the patient was seen, as this information can be updated by other users. Medical History (Updated 05/05/22 @ 09:05 by Erik Sahu MD) Diabetes Hyperlipidemia Hypothyroidism Surgical History History of cholecystectomy Family History No significant family history Social History Smoking Status: Former smoker alcohol intake: never current occupational status: unemployed Travel in the last 8 weeks: None Review of Systems Constitutional Constitutional: Denies headache(s) and Reports weakness ENT Ears, Nose, Mouth, and Throat: Denies headache(s) and Denies vertigo *Neurologic Neurologic: Denies headache(s), Denies vertigo and Reports weakness Exam Data for Last 24 hours Vital signs and Labs for Last 24 Hours: Temp Pulse Resp BP Pulse Ox 97.7 F 90 16 149/87 H 96 05/05/22 08:00 05/05/22 06:00 05/05/22 06:00 05/05/22 06:00 05/05/22 06:00 Laboratory Results - last 24 hr 05/05/22 01:10: WBC 8.3, RBC 4.55, Hgb 12.8, Hct 40.8, MCV 89.6, MCH 28.1, MCHC 31.3 L, RDW 15.3, Plt Count 600 H, MPV 8.5, Neut % (Auto) 66.8, Lymph % (Auto) 25.0, [place] % (Auto) 5.1, Eos % (Auto) 2.4, Baso % (Auto) 0.8, Neut # (Auto) 5.5, Lymph # (Auto) 2.1, [place] # (Auto) 0.4, Eos # (Auto) 0.2, Baso # (Auto) 0.1, ESR 22 05/05/22 01:10: Sodium 140, Potassium 3.2 L, Chloride 104, Carbon Dioxide 25, Anion Gap 14.2, BUN 13, Creatinine 0.90, Estimated Creat Clear 48, Estimated GFR 60, Est GFR ( Amer) 73, Glucose 115 H, Calcium 9.5, Total Bilirubin 0.9, AST 26, ALT 17, Alkaline Phosphatase 130 H, Troponin I < 0.01, C-Reactive Protein 13.4 H, Total Protein 7.5, Albumin 4.2, Globulin 3.3 H, Albumin/Globulin Ratio 1.3, Procalcitonin 0.148 05/05/22 01:10: Lactate 1.6 05/05/22 01:10: Free T4 2.30 H 05/05/22 01:10: TSH 0.75 05/05/22 01:10: NT-Pro-B Natriuret Pep 168 05/05/22 01:13: SARS-CoV-2 (PCR) Detected A, Influenza A Untype (PCR)
--- NOTE | 2022-05-05 09:51 | HMH.PHAINT1 ---
Pharmacy Intervention Comments: Medication reconciliation completed via chart review and external fill history. -Nurys Villa, PharmD Candidate 2022
[2022-05-05 11:43] LABS: POC Glucose,Bedside 98 (70-110)
--- NOTE | 2022-05-05 11:55 | PC.NURSE ---
Addendum entered by Mavis Domingo RN 05/05/22 13:48: Spoke with Dr Sahu face to face at 1320. ok to transfer pt out of stepdown. awaiting orders about galicia cath. Original Note: [id number] called and left message with Dr Sahu's nurse, Veda. notified that recommendations were made by cardiology and are in the consult note, including that the pt is ready for DC from their standpoint. does want pt to remain in stepdown, and galicia cath was inserted last night related to large PVR, does md want galicia to remain in place?
--- NOTE | 2022-05-05 17:31 | PC.NURSE ---
report given to laura chase [id number]
[2022-05-05 19:32] LABS: POC Glucose,Bedside 137 (70-110)
[2022-05-05 20:59] LABS: POC Glucose,Bedside 100 (70-110)
[2022-05-06] VITALS: BP 129/81; PULSE 55; PULSE 76; RESP 16; TEMP 36.9; O2SAT 96
[2022-05-06 04:00] VITALS: BP 126/74; PULSE 53; PULSE 69; RESP 17; TEMP 37.3; O2SAT 95
--- NOTE | 2022-05-06 04:09 | PC.NURSE ---
PATIENT IS A/O X 3. COOPERATIVE. SLIGHT UNSTEADY ON FEETDUE TO WEAKNESS. REQUIRES ASSIST X 1 TO GO TO BR. REMAINS IN AIRBORN/CONTACT ISOLATION. SINUS MONIQUE ON TELEMETRY. DENIES PAIN/SOA/DISCOMFORT.
[2022-05-06 05:13] VITALS: BMI 25.1
[2022-05-06 05:25] LABS: POC Glucose,Bedside 88 (70-110)
[2022-05-06 07:11] LABS: Basophils % 0.6 % (0.1-2.0); Eosinophils # 0.1 K/mm3 (0.0-0.4); Eosinophils % 1.3 % (0.1-12.0); Hemoglobin 10.2 g/dL (12.2-16.2); Lymphocytes # 1.2 K/mm3 (0.7-4.5); Lymphocytes % 18.1 % (10-50); Mean Corpuscular HGB Conc 33.1 g/dL (31.8-35.4); Mean Corpuscular Hemoglobin 29.1 pg (27.0-31.2); Mean Platelet Volume 8.7 fl (7.4-10.4); Monocytes # 0.4 K/mm3 (0.1-1.0); Monocytes % 6.4 % (1.7-9.3); Neutrophils # 4.7 K/mm3 (1.8-7.8); Neutrophils % 73.6 % (37.0-80.0); Platelet Count 419 K/mm3 (142-424); Red Blood Count 3.52 M/mm3 (4.20-5.40); Red Cell Distribution Width 15.6 % (11.5-17.5); White Blood Count 6.4 K/mm3 (4.8-10.8)
[2022-05-06 07:18] LABS: Chloride 109 mmol/L (98-107); Potassium 3.7 mmoL/L (3.5-5.1); Sodium 140 mmol/L (136-145)
[2022-05-06 07:21] LABS: Blood Urea Nitrogen 6 mg/dl (7-17); Creatinine Clearance Estimated 47 mL/min (50-200); Estimated Glomerular Filt Rate 69 ml/min (>60); GFR (African American) 84 ML/MIN (>60)
[2022-05-06 07:22] LABS: Calcium 8.6 mg/dl (8.4-10.2); Glucose 83 mg/dl (74-100)
[2022-05-06 08:00] VITALS: BP 158/81; PULSE 68; PULSE 70; RESP 16; TEMP 37.1; O2SAT 96
[2022-05-06 08:09] LABS: Anion Gap 8.7 mEq/L (5-15); Carbon Dioxide 26 mmol/L (22.0-30.0)
--- NOTE | 2022-05-06 08:39 | EXP.ACUTE.PN ---
Subjective *Date: 05/06/22 *Time: 09:25 Interval history: Patient is feeling well today. Has remained in sinus rhythm. Tolerated the xarelto. Anxious to go home. Medical Exam Vital signs and Labs for Last 24 Hours: Vital Signs Temp Pulse Pulse Resp BP Pulse Ox 05/06/22 04:00 53 L 05/05/22 20:00 60 05/06/22 04:00 99.2 F 69 17 126/74 95 05/06/22 00:00 55 L 05/06/22 00:00 98.4 F 76 16 129/81 96 05/05/22 20:00 97 05/05/22 20:00 98.3 F 58 L 17 135/77 97 05/05/22 16:00 60 05/05/22 12:00 70 05/05/22 16:30 98 05/05/22 16:00 97.9 F 64 15 137/59 L 97 05/05/22 14:00 73 20 122/75 97 05/05/22 12:00 73 22 122/75 98 05/05/22 10:00 72 20 127/77 98 Intake and Output 05/05/22 05/06/22 05/06/22 19:59 03:59 11:59 Intake Total 600 / 1535 120 / 1535 815 / 1535 Output Total 0 / 0 Balance 600 / 1535 120 / 1535 815 / 1535 Intake: Intake, Oral Amount 600 / 960 120 / 960 240 / 960 Intake, Total IV Amount 575 / 575 0.9 % Sodium Chloride 1,000 ml 575 / 575 @ 50 mls/hr IV .Q20H [facility] Rx#: [id number] Output: Output, Urine Amount 0 / 0 Other: Number of Unmeasured Voids 0 1 Weight 147 lb 6 oz Patient Weight 05/06/22 11:59 Weight 147 lb 6 oz Laboratory Results - last 24 hr 05/05/22 11:29: POC Glucose 98 05/05/22 16:51: POC Glucose 137 H 05/05/22 20:27: POC Glucose 100 05/06/22 05:10: POC Glucose 88 05/06/22 06:40: WBC 6.4 D, RBC 3.52 L, Hgb 10.2 L, Hct 31.0 L, MCV 88.0, MCH 29.1, MCHC 33.1, RDW 15.6, Plt Count 419, MPV 8.7, Neut % (Auto) 73.6, Lymph % (Auto) 18.1, Woods % (Auto) 6.4, Eos % (Auto) 1.3, Baso % (Auto) 0.6, Neut # (Auto) 4.7, Lymph # (Auto) 1.2, Woods # (Auto) 0.4, Eos # (Auto) 0.1, Baso # (Auto) 0.0 05/06/22 06:40: Sodium 140, Potassium 3.7, Chloride 109 H, Carbon Dioxide 26, Anion Gap 8.7, BUN 6 L D, Creatinine 0.80, Estimated Creat Clear 47, Estimated GFR 69, Est GFR ( Amer) 84, Glucose 83, Calcium 8.6 I & O for Labs for Last 24 Hours: Intake & Output 05/03/22 05/04/22 05/05/22 05/06/22 11:59 11:59 11:59 11:59 Intake Total 240 / 240 1535 / 1535 Output Total 1250 / 1250 0 / 0 Balance -1010 / -1010 1535 / 1535 Weight 146 lb 1.605 oz 147 lb 6 oz Constitutional: Present no acute distress Respiratory: Present CTA bilaterally Cardiac: Present Reg Rate and Rhythm GI: Present soft and normal bowel sounds; Absent distention or tenderness Extremities: Absent edema, clubbing or cyanosis Skin: Present intact Neuro: Present alert and awake Assessment and Plan *Assessment and plan (1) COVID-19: Status: Acute Category: Medical Code(s): U07.1 - COVID-19 (2) Atrial fibrillation with rapid ventricular response: Status: Acute Category: Medical Code(s): I48.91 - Unspecified atrial fibrillation (3) Acute dehydration: Status: Acute Category: Medical Code(s): E86.0 - Dehydration (4) Acute hypokalemia: Status: Acute Category: Medical Code(s): E87.6 - Hypokalemia (5) Hypothyroidism: Status: Chronic Category: Medical Code(s): E03.9 - Hypothyroidism, unspecified (6) Hyperlipidemia: Status: Chronic Category: Medical Code(s): E78.5 - Hyperlipidemia, unspecified (7) Diabetes: Status: Chronic Qualifiers: Diabetes mellitus complication status: without complication Diabetes mellitus rat exterminator insulin use: without assisted use Diabetes mellitus type: type 2 Qualified Code(s): E11.9 - Type 2 diabetes mellitus without complications Category: Medical Code(s): E11.9 - Type 2 diabetes mellitus without complications Plan Cardiology feels she is stable to discharge with a 30-day event monitor to assess A. fib burden.? They recommend starting patient on bisoprolol 2.5 mg p.o. daily for rate control as well as Xarelto 20 mg p.o. daily
--- NOTE | 2022-05-06 09:52 | P.CONPHA_ITS ---
Pharmacy Intervention Comments: DISCHARGE MEDICATION COUNSELING PROVIDED TO PATIENT AND DAUGHTER. DISCUSSED STARTING THE FOLLOWING: -BISOPROLOL (FOR BP/HEART RATE, DAILY, WITH OR WITHOUT FOOD, DIZZINESS/LIGHTHEADEDNESS, HEADACHE, SLOWED HEART RATE POSSIBLE) -XARELTO (BLOOD THINNER, DAILY IN THE EVENING WITH DINNER, BLEED/BRUISE RISK, B UMP HEAD = GO TO ER, BLOOD IN URINE/EMESIS/STOOL CHANGES APPEARANCE BASED ON BLEED LOCATION AND GO TO ER) PATIENT AND DAUGHTER VERBALIZED NO QUESTIONS AT THIS TIME.
--- NOTE | 2022-05-08 21:57 | EXP.DC.SUM ---
General Admission date:: 05/05/22 Discharge date: 05/06/22 HPI HPI HPI: Ms. Millard is an 81-year-old female who tested positive for COVID the Monday after . Her daughter states that she had a very mild course of COVID with mainly just sinus congestion and a cough. She states she has not wanted to eat or drink since having COVID and last Monday, began feeling poorly and was taken to the emergency room. All testing was normal except for her potassium, which was low. She was given potassium in the ER and sent home. Her daughter states the past few days she has woken up feeling nauseated and weak. She has also had some lower abdominal pain and felt the need to urinate but could not. She brought her to the emergency room again yesterday. She was found at that time to be in A. fib with RVR with a rate of 150. She was admitted and started on a Cardizem drip. A catheter was placed and she had quite a bit of output. Her daughter states she converted to normal sinus rhythm this morning. Her Cardizem drip has been discontinued and she has remained in normal sinus rhythm. At this time she feels well. She still does not want to eat. Hospital Course Hospital Course Hospital Course: The patient did convert to normal sinus rhythm. Her potassium was low and her free T4 was elevated. Her potassium was replaced. She was seen in consultation by cardiology and they started her on bisoprolol 2.5 daily for further rate control as well as Xarelto 20 mg daily. They wanted her discharged with a 30-day event monitor. Her echo showed an EF of 55% with mild AI and mild MR. They wanted to follow-up with her in 2 weeks. By 05/06/2022 she remained in normal sinus rhythm and was tolerating the Xarelto. She was anxious to be discharged home. She will follow up with Dr. Greenfield in 3 weeks and will also follow-up with cardiology. Exam Data for Last 24 hours Vital signs and Labs for Last 24 Hours: Temp Pulse Resp BP Pulse Ox 98.7 F 68 16 158/81 H 96 05/06/22 08:00 05/06/22 08:00 05/06/22 08:00 05/06/22 08:00 05/06/22 08:00 I & O for Last 24 hours: Intake & Output 12/16/22 12/17/22 12/18/22 12/19/22 11:59 11:59 11:59 11:59 Intake Total 1774 / 1774 Output Total 0 / 0 Balance 1774 Weight 147 lb 6 oz Narrative: Constitutional Constitutional: no acute distress *Routine HEENT Exam Head: Present normocephalic and atraumatic Eye: Present EOMI and PERRL ENT: Present mucous membranes dry *Routine Neck Exam Neck: Present supple and full ROM *Routine Respiratory Exam Respiratory: Present CTA bilaterally *Routine Cardiovascular Exam Cardiovascular: Present RRR *Routine Abdominal Exam Abdominal: Present soft and normoactive bowel sounds; Absent tenderness *Routine Rectal Exam Rectal:: deferred *Routine Genitalia Exam Genitalia:: deferred *Routine Extremities Exam Extremities: Absent cyanosis, clubbing or edema *Routine Skin Exam Skin: Present intact; Absent erythema *Routine Neurological Exam Neurological: Present alert and oriented X3 Results Data Completed and Pending Labs on day of discharge: Preliminary micro results at discharge 05/05/22 01:10 Blood Culture - Preliminary Blood NO GROWTH AFTER 48 HOURS 05/05/22 01:10 Blood Culture - Preliminary Blood NO GROWTH AFTER 48 HOURS DS: Diagnosis Discharge Diagnosis (1) COVID-19: Status: Acute (2) Atrial fibrillation with rapid ventricular response: Status: Acute (3) Acute dehydration: Status: Acute (4) Acute hypokalemia: Status: Acute (5) Hypothyroidism: Status: Chronic (6) Hyperlipidemia: Status: Chronic (7) Diabetes: Status: Chronic Meds Home Medications and Allergies Home Medications Medication Instructions Recorded Confirmed Type levothyroxine 75 mcg tablet 75 mcg PO DAILY Hypothyroidism 04/30/22 05/05/22 History metformin 500 mg tablet 500 mg PO DAILY
--- NOTE | 2022-05-09 14:05 | CARE MANAGER ---
Contacted patient's daughter related to hospital discharge. She states that the patient is doing better. They could not afford the Xarelto and have called and left message with Dr. Sahu's office. I attempted to call [facility] pharmacy and use a discount card, but they were unable to use it. Patient is going to call PCP back this afternoon as we discussed the importance of her taking the blood thinner. Denies any other questions or concerns. CONNER Mckeon
== END 2022-05-06 11:16 | disposition home or self-care (01) | DRG 308 ==
LOC: ER 01:19 → 2ND 02:27
PROVIDERS: Admitting Provider Internal Medicine Adolescent Medicine; Emergency Provider Emergency Medicine; PCP Family Medicine; Visit Provider Family Medicine
DX: I48.91 Unspecified atrial fibrillation (principal); U07.1 COVID-19; E86.0 Dehydration; E87.6 Hypokalemia; E03.9 Hypothyroidism, unspecified; E78.5 Hyperlipidemia, unspecified; E11.9 Type 2 diabetes mellitus without complications; Z79.899 Other long term (current) drug therapy; Z79.84 Long term (current) use of oral hypoglycemic drugs
CPT/HCPCS: 36415; 71045; 80048; 80053; 81001; 82962; 83605; 83735; 83880; 84145; 84439; 84443; 84484; 85025; 85651; 86140; 87040; 93005; 93270; 93306; 99285; C9803; U0003; U0005

== ENCOUNTER → 2022-08-16 08:51 | Outpatient (CLI) | payer MEDICARE, SELFPAY ==
[2022-08-16 09:45] LABS: Alanine Aminotransferase 13 U/L (12-78); Albumin/Globulin Ratio 1.4 (1.1-1.8); Alkaline Phosphatase 98 U/L (38-126); Anion Gap 9.8 mEq/L (5-15); Aspartate Amino Transferase 23 U/L (14-36); Bilirubin,Total 0.7 mg/dl (0.2-1.3); Blood Urea Nitrogen 13 mg/dl (7-17); Calcium 9.1 mg/dl (8.4-10.2); Carbon Dioxide 29 mmol/L (22.0-30.0); Chloride 102 mmol/L (98-107); Chol/HDL Ratio 1.7 (1-3.5); Cholesterol 131 mg/dl (140-200); Estimated Glomerular Filt Rate 60 ml/min (>60); GFR (African American) 73 ML/MIN (>60); Globulin 2.8 g/dL (1.3-3.2); Glucose 99 mg/dl (74-100); HDL Cholesterol 77 mg/dl (40-60); Potassium 3.8 mmoL/L (3.5-5.1); Sodium 137 mmol/L (136-145); Total Protein,Serum 6.8 g/dl (6.3-8.2); Triglycerides 94 mg/dl (30-150); VLDL Cholesterol 19 mg/dL (0-40)
[2022-08-16 09:56] LABS: Direct LDL Cholesterol 37.26 mg/dL (100-129)
[2022-08-16 10:15] LABS: Thyroid Stimulating Hormone 1.91 uIU/mL (0.465-4.68)
[2022-08-16 12:53] LABS: Hemoglobin A1C 5.3 % (4.0-6.0)
== END ==
PROVIDERS: PCP Family Medicine; Visit Provider Family Medicine
DX: E11.9 Type 2 diabetes mellitus without complications (principal); E78.2 Mixed hyperlipidemia; E03.9 Hypothyroidism, unspecified; Z79.84 Long term (current) use of oral hypoglycemic drugs
CPT/HCPCS: 80053; 80061; 83036; 84443

== ENCOUNTER → 2022-09-07 10:30 | Outpatient (CLI) | payer MEDICARE, SELFPAY ==
--- NOTE | 2022-09-07 10:41 | ECG_ITS ---
APPROVED REPORT Exam: Resting ECG HR:95 bpm ECG Measurements Heart Rate 95 AXES AL 102 P 16 QRSd 88 QRS 29 QT 352 T 48 QTc 405 Conclusion SINUS RHYTHM WITH SHORT AL INTERVAL WITH OCCASIONAL ECTOPIC PREMATURE COMPLEXES MINIMAL ST DEPRESSION [0.025+ mV ST DEPRESSION] BORDERLINE ECG UNCONFIRMED REPORT Electronically signed by : Enrique Epstein MD 09/09/2022 14:25:52
--- NOTE | 2022-09-07 10:50 | XR_ITS ---
FINAL REPORT CLINICAL HISTORY: PREOP, htn, diabetic COMPARISON: 05/05/2022 FINDINGS: Two views of the chest were obtained. The heart size and pulmonary vascularity are within normal limits. The mediastinum is normal. There is a large hiatal hernia. There is left lung base opacity, favor atelectasis. There is bilateral apical scarring and pleural thickening. There is a small to moderate right pleural effusion. There is no pneumothorax. The bony thorax is intact. IMPRESSION: Left lung base opacity, favor atelectasis. Bilateral apical scarring and pleural thickening. Small to moderate right pleural effusion. Reviewed, Interpreted and Dictated by Isidro Sterling III, MD Transcribed by Florinda Solares Authenticated and [facility]
== END ==
PROVIDERS: PCP Family Medicine; Visit Provider Student in an Organized Health Care Education/Training Program
DX: D37.8 Neoplasm of uncertain behavior of other specified digestive organs (principal)
CPT/HCPCS: 71046; 93005

== ENCOUNTER → 2022-09-29 07:50 | Outpatient (CLI) | payer MEDICARE, SELFPAY ==
--- NOTE | 2022-09-29 08:07 | CT_ITS ---
FINAL REPORT TECHNIQUE: Oral and IV contrast enhanced exam of the abdomen and pelvis. This study was performed with techniques to keep radiation doses as low as reasonably achievable, (ALARA). Individualized dose reduction techniques using automated exposure control or adjustment of mA and/or kV according to the patient's size were employed. CLINICAL HISTORY: anal mass COMPARISON: None FINDINGS: Abdomen: The gallbladder is surgically absent. Liver has an unremarkable CT appearance. The spleen, pancreas and adrenal glands are unremarkable. Kidneys show no mass or obstruction. No bowel obstruction or fluid collection is seen. Pelvis: The appendix is not visualized. Uterine fibroids are noted. No intrapelvic adenopathy. Necrotic mass in the rectoanal junction with extension to the skin surface and skin ulceration. Wall thickening measures up to 22 mm. On axial imaging, largest component of the mass measures 62 x 46 mm. Disease segment of bowel extends nearly 9 cm in length. There are numerous small inguinal lymph nodes, largest measuring up to 9 mm, normal in size. IMPRESSION: Large mass distal rectum and anus as above with associated skin ulceration. No evidence of distant metastasis. Reviewed, Interpreted and Dictated by Chelsi Avery MD Transcribed by Arlene Abad Authenticated and [facility]
--- NOTE | 2022-09-29 08:07 | CT_ITS ---
FINAL REPORT TECHNIQUE: Axial CT with contrast with 3-D MIP reconstruction. This study was performed with techniques to keep radiation doses as low as reasonably achievable, (ALARA). Individualized dose reduction techniques using automated exposure control or adjustment of mA and/or kV according to the patient's size were employed. CLINICAL HISTORY: anal mass COMPARISON: None FINDINGS: Pulmonary vessels enhance in normal fashion without evidence of embolism. Thoracic aorta shows no dissection or aneurysm. Compressive atelectasis left lower lobe. Chronic interstitial changes. No suspicious pulmonary nodule. There is no significant pleural effusion. There is no significant pericardial effusion. No mediastinal or hilar adenopathy is present. Large hiatal hernia involving nearly the entire stomach. IMPRESSION: No suspicious pulmonary nodule. Large hiatal hernia. No evidence of distant metastasis Reviewed, Interpreted and Dictated by Chelsi Avery MD Transcribed by Arlene Abad Authenticated and [facility]
[2022-09-29 08:23] LABS: Blood Urea Nitrogen 16 mg/dl (7-17); Estimated Glomerular Filt Rate 69 ml/min (>60); GFR (African American) 84 ML/MIN (>60)
== END ==
PROVIDERS: PCP Family Medicine; Visit Provider Student in an Organized Health Care Education/Training Program
DX: D37.8 Neoplasm of uncertain behavior of other specified digestive organs (principal)
CPT/HCPCS: 36415; 71260; 74177; 82565; 84520; Q9967

== ENCOUNTER → 2022-11-26 08:08 | Outpatient (CLI) | payer MEDICARE, SELFPAY ==
[2022-11-26 09:22] LABS: Blood Urea Nitrogen 18 mg/dl (7-17); Estimated Glomerular Filt Rate 80 ml/min (>60); GFR (African American) 97 ML/MIN (>60)
== END ==
PROVIDERS: PCP Family Medicine; Visit Provider Internal Medicine
DX: C21.1 Malignant neoplasm of anal canal (principal)
CPT/HCPCS: 36415; 82565; 84520

== ENCOUNTER → 2022-12-12 10:08 | Outpatient (CLI) | payer MEDICARE, SELFPAY ==
[2022-12-12 11:59] LABS: Potassium 4.3 mmoL/L (3.5-5.1)
== END ==
PROVIDERS: PCP Family Medicine; Visit Provider Internal Medicine Medical Oncology
DX: E87.6 Hypokalemia (principal)
CPT/HCPCS: 36415; 84132

== ENCOUNTER → 2023-02-07 07:21 | Outpatient (CLI) | payer MEDICARE, SELFPAY ==
[2023-02-07 08:26] LABS: Chloride 108 mmol/L (98-107); Potassium 4.1 mmoL/L (3.5-5.1); Sodium 138 mmol/L (136-145)
[2023-02-07 08:29] LABS: Alanine Aminotransferase 17 U/L (12-78); Albumin Level 3.7 g/dl (3.5-5.0); Albumin/Globulin Ratio 1.3 (1.1-1.8); Alkaline Phosphatase 79 U/L (38-126); Anion Gap 12.1 mEq/L (5-15); Aspartate Amino Transferase 23 U/L (14-36); Bilirubin,Total 0.4 mg/dl (0.2-1.3); Blood Urea Nitrogen 17 mg/dl (7-17); Calcium 9.8 mg/dl (8.4-10.2); Carbon Dioxide 22 mmol/L (22.0-30.0); Chol/HDL Ratio 2.6 (1-3.5); Cholesterol 175 mg/dl (140-200); Estimated Glomerular Filt Rate 80 ml/min (>60); GFR (African American) 97 ML/MIN (>60); Globulin 2.8 g/dL (1.3-3.2); Glucose 93 mg/dl (74-100); HDL Cholesterol 67 mg/dl (40-60); Total Protein,Serum 6.5 g/dl (6.3-8.2); Triglycerides 175 mg/dl (30-150); VLDL Cholesterol 35 mg/dL (0-40)
[2023-02-07 09:00] LABS: Thyroid Stimulating Hormone 0.19 uIU/mL (0.465-4.68)
== END ==
PROVIDERS: PCP Family Medicine; Visit Provider Family Medicine
DX: E11.9 Type 2 diabetes mellitus without complications (principal); E78.2 Mixed hyperlipidemia; E03.9 Hypothyroidism, unspecified; Z79.84 Long term (current) use of oral hypoglycemic drugs
CPT/HCPCS: 36415; 80053; 80061; 83036; 84443

== ENCOUNTER 2023-02-10 19:41 | Emergency (ER) | payer MEDICARE, SELFPAY ==
[2023-02-10 19:50] VITALS: BP 123/83; PULSE 129; RESP 19; TEMP 37.1; O2SAT 96; BMI 17.2
--- NOTE | 2023-02-10 19:54 | EXP.UTC ---
Discharge Plan Disposition Patient Disposition: Home, Self-Care Condition: Good Prescriptions Prescriptions: New levofloxacin 500 mg tablet 500 mg PO DAILY Qty: 7 0RF No Action metformin 500 mg tablet 500 mg PO DAILY Patient Comments: TAKE 1 TABLET BY MOUTH ONCE DAILY simvastatin 40 mg tablet 40 mg PO DAILY Patient Comments: TAKE 1 TABLET BY MOUTH ONCE DAILY AT BEDTIME levothyroxine 75 mcg tablet 75 mcg PO DAILY Patient Comments: TAKE 1 TABLET BY MOUTH ONCE DAILY bisoprolol fumarate 5 mg Tablet 2.5 mg PO DAILY Qty: 30 5RF Referrals Follow up/Referrals: Vitor Greenfield MD [Primary Care Provider] - See instructions Activity Restrictions/Add. Instructions Additional Instructions/Restrictions: Dr Greenfield should have culture results available Monday Clinical Impressions Clinical Impression: UTI (urinary tract infection) Qualifiers: Urinary tract infection type: acute cystitis Hematuria presence: without hematuria Qualified Code(s): N30.00 - Acute cystitis without hematuria Instructions Patient Instructions: DI for Urinary Tract Infection (UTI) Discharge ED Provider: Colleen Wright [facility] General Stated complaint: possible UTI (going to Bath room alot Time Seen by Provider: 02/10/23 19:59 History of Present Illness Provider Complaint: Patient has had urinary pressure, urgency, frequency, dysuria since earlier today but also notes she has been going more frequently for the past few days. No fever. No nausea or vomiting. She recently completed chemo and radiation for rectal cancer. Onset (ago): day(s) (1) Location: abdomen Radiation: non-radiation Quality: burning Relieving factors: none Exacerbating factors: none Treatments prior to arrival: none Related Data Home Medications Medication Instructions Recorded Confirmed levothyroxine 75 mcg tablet 75 mcg PO DAILY Hypothyroidism 04/30/22 06/16/22 metformin 500 mg tablet 500 mg PO DAILY Diabetes 04/30/22 06/16/22 simvastatin 40 mg tablet 40 mg PO DAILY Hyperlipidemia 04/30/22 06/16/22 Previous Rx's Medication Instructions Recorded bisoprolol fumarate 5 mg tablet 2.5 mg PO DAILY #30 tabs 05/06/22 levofloxacin 500 mg tablet 500 mg PO DAILY #7 tabs 02/10/23 Allergies Allergy/AdvReac Type Severity Reaction Status Date / Time No Known Allergies Allergy Verified 06/16/22 14:29 [facility] Disclaimer: The information contained in this section may have been updated after the patient was seen, as this information can be updated by other users. Medical History (Updated 02/10/23 @ 20:15 by DEANA Denise) Diabetes HTN (hypertension) Hyperlipidemia Hypothyroidism Paroxysmal A-fib Surgical History History of cholecystectomy Family History Other No significant family history Social History Smoking Status: Former smoker alcohol intake: never current occupational status: unemployed Travel in the last 8 weeks: None ROS Obtained: Yes All systems reviewed & no additional complaints except as documented Genitourinary Female Genitourinary: Reports dysuria, Reports urinary frequency and Reports urinary urgency Physical Exam General General appearance: alert and in no apparent distress Chest Chest inspection: Present normal inspection and symmetric chest wall rise; Absent tenderness Respiratory Respiratory exam: Present normal lung sounds bilaterally; Absent respiratory distress Cardiovascular Cardiovascular exam: Present regular rate and normal rhythm; Absent JVD Abdominal Exam Abdominal exam: Present soft and normal bowel sounds; Absent distention, tenderness or guarding Abdominal tenderness: Present suprapubic Extremities Exam Extremities exam: Present normal inspection, full ROM and norm
[2023-02-10 20:04] VITALS: BP 123/83; PULSE 129; RESP 19; TEMP 37.1; O2SAT 96
[2023-02-10 20:16] LABS: Microscopic, Urine URINE MICROSCOPIC (MICROSCOPIC)
[2023-02-10 20:17] LABS: Appearance,Urine CLEAR (Clear); Bilirubin,Urine Negative (Negative); Blood, Urine TRACE-I (Negative); Color,Urine YELLOW (Yellow); Glucose,Urine (UA) Negative (Negative); Ketones,Urine Negative (Negative); Leukocyte Esterase,Urine 2+ (Negative); Nitrate,Urine Negative (Negative); Protein,Urine TRACE (Negative); Urobilinogen,Urine 0.2 EU/dl (0.2)
[2023-02-10 20:49] LABS: Bacteria,Urine Trace /lpf; RBC,Urine Occasional #/hpf (0-3); Squamous Epithelial Cell,Urine Occasional #/hpf (0-5); WBC,Urine 20-50 #/hpf (0-3)
== END 2023-02-10 20:10 | disposition home or self-care (01) ==
PROVIDERS: Emergency Provider Physician Assistant; PCP Family Medicine
DX: N39.0 Urinary tract infection, site not specified (principal); B96.89 Other specified bacterial agents as the cause of diseases classified elsewhere; E11.9 Type 2 diabetes mellitus without complications; I10 Essential (primary) hypertension; E78.5 Hyperlipidemia, unspecified; E03.9 Hypothyroidism, unspecified; Z79.84 Long term (current) use of oral hypoglycemic drugs
CPT/HCPCS: 81001; 87086; 87088; 87186; 99204; 99212; G0463

== ENCOUNTER 2023-03-08 08:47 | Outpatient (CLI) | payer MEDICARE, SELFPAY ==
--- NOTE | 2023-03-08 08:51 | CT_ITS ---
FINAL REPORT CLINICAL HISTORY: MALIGNANT TUMOR OF ANUS COMPARISON: 09/29/2022 FINDINGS: Axial CT images of the chest were obtained with contrast. Coronal reformatted images were also obtained. This study was performed with techniques to keep radiation doses as low as reasonably achievable, (ALARA). Individualized dose reduction techniques using automated exposure control or adjustment of mA and/or KV according to the patient's size were employed. There is no evidence of mediastinal or hilar mass or adenopathy. No axillary mass or adenopathy is identified. On lung window images, no pulmonary mass or dominant pulmonary nodule is identified. No localized pulmonary inflammatory process is identified. There is a large hiatal hernia. Small left effusion is identified. There is mild scarring. There is right apical scarring which is visually stable. Right jugular port is identified. IMPRESSION: Small left effusion. Large hiatal hernia. Reviewed, Interpreted and Dictated by Isidro Sterling III, MD Transcribed by Nicole Fish Authenticated and [facility]
--- NOTE | 2023-03-08 08:51 | CT_ITS ---
FINAL REPORT TECHNIQUE: After the administration of oral and intravenous contrast, axial images were obtained through the abdomen and pelvis by computed tomography. The study was performed with techniques to keep radiation dose as low as reasonably achievable, (ALARA). Individual dose reduction techniques using automated exposure control or adjustment of mA and/or kV according to the patient's size were employed. CLINICAL HISTORY: .malignant tumor of anus COMPARISON: 09/29/2022 FINDINGS: Abdomen: The liver is normal in size and attenuation. The spleen is unremarkable. The adrenals are normal. The pancreas is unremarkable. There is a small right renal cyst. The aorta is normal in caliber. There is no free fluid or adenopathy. Pelvis: Left pelvis colostomy is identified. There is a partially calcified uterine fibroid. The lower pelvis is not imaged but there appears to be improvement in the distal rectum and anal mass. IMPRESSION: Apparent improvement in the distal rectum and anal mass. Reviewed, Interpreted and Dictated by Isidro Sterling III, MD Transcribed by Nicole Fish Authenticated and [facility]
== END 2023-03-08 09:37 | disposition home or self-care (01) ==
LOC: RAD 08:47 → INF 09:30
PROVIDERS: PCP Family Medicine; Visit Provider Physician Assistant Medical
DX: C21.0 Malignant neoplasm of anus, unspecified (principal)
CPT/HCPCS: 71260; 74177; 96523; J1642; Q9967

== ENCOUNTER 2023-05-23 10:48 | Outpatient (CLI) | payer MEDICARE, SELFPAY ==
[2023-05-23 12:05] LABS: Blood Urea Nitrogen 29 mg/dl (7-17); Estimated Glomerular Filt Rate 69 ml/min (>60); GFR (African American) 83 ML/MIN (>60)
== END 2023-05-23 23:59 ==
LOC: LAB 10:50
PROVIDERS: PCP Family Medicine; Visit Provider Internal Medicine Medical Oncology
DX: Z01.812 Encounter for preprocedural laboratory examination (principal)
CPT/HCPCS: 36415; 82565; 84520

== ENCOUNTER 2023-06-05 08:53 | Outpatient (CLI) | payer MEDICARE, SELFPAY ==
--- NOTE | 2023-06-05 08:56 | CT_ITS ---
FINAL REPORT CLINICAL HISTORY: MALIGNANT TUMOR OF ANUS COMPARISON: 03/08/2023 FINDINGS: Axial CT images of the chest were obtained with contrast. Coronal reformatted images were also obtained. This study was performed with techniques to keep radiation doses as low as reasonably achievable, (ALARA). Individualized dose reduction techniques using automated exposure control or adjustment of mA and/or KV according to the patients' size were employed. Right jugular port is present. Small mediastinal nodes. No axillary mass or adenopathy is identified. There is a large hiatal hernia. On lung window images, no pulmonary mass or dominant pulmonary nodule is identified. There is mild scarring. There is a stable very small left pleural effusion. No localized pulmonary inflammatory process is identified. Limited images of the upper abdomen reveal no mass or localized inflammatory process. IMPRESSION: No mass or localized inflammatory process. No evidence of metastatic disease. Reviewed, Interpreted and Dictated by Isidro Sterling III, MD Transcribed by Arlene Abad Authenticated and [facility]
--- NOTE | 2023-06-05 08:56 | CT_ITS ---
FINAL REPORT TECHNIQUE: After the administration of intravenous contrast, axial images were obtained through the abdomen and pelvis by computed tomography. This study was performed with technique to keep radiation doses as low as reasonably achievable, (ALARA). Individualized dose reduction techniques using automated exposure control or adjustment of the MA and/or KV according to the patient's size were employed. CLINICAL HISTORY: MALIGNANT TUMOR OF ANUS COMPARISON: 03/08/2023, 09/29/2022 FINDINGS: Abdomen: Mild scarring is seen at the lung bases. There is a large hiatal hernia. The liver is normal in size and attenuation. Patient is status postcholecystectomy. The spleen is unremarkable. The adrenals are normal. The pancreas is unremarkable. The kidneys enhance appropriately. The aorta is normal in caliber. There is no free fluid or adenopathy. Pelvis: The appendix is not identified. The urinary bladder is unremarkable. There is no free fluid or adenopathy. Mild soft tissue thickening is seen at the level of the anus measuring 2.3 x 2.4 cm. This was not imaged on the most recent CT but appears markedly improved from more remote CT performed September 2022. There is marked worsening of right inguinal adenopathy now measuring 5.6 x 5.0 cm, previously measured 1.6 x 1.5 cm. There is also new, medial right external iliac adenopathy measuring 2.5 x 1.5 cm. There is a heterogeneous, partially calcified uterine mass measuring 2.8 cm, favor fibroid. There is no evidence of osseous metastatic disease. IMPRESSION: Worsening right inguinal and external iliac adenopathy consistent with worsening metastatic adenopathy. Reviewed, Interpreted and Dictated by Isidro Sterling III, MD Transcribed by Ingrid Lainez Authenticated and [facility]
[2023-06-05] MEDS: SODIUM CHLORIDE 0.9% 10ML FLUSH SYRINGE 10 ML IV (09:25)
[2023-06-05] MEDS: IOPAMIDOL-370 (76%);100ML BOTTLE 75 ML IV (09:27)
[2023-06-05] MEDS: SODIUM CHLORIDE 0.9% 10ML SYR (RAD ONLY) 10 ML IV (09:27)
== END 2023-06-05 09:29 | disposition home or self-care (01) ==
LOC: RAD 08:53 → INF 09:29
PROVIDERS: PCP Family Medicine; Visit Provider Physician Assistant Medical
DX: C21.0 Malignant neoplasm of anus, unspecified (principal); Z45.2 Encounter for adjustment and management of vascular access device
CPT/HCPCS: 71260; 74177; 96523; J1642; Q9967

== ENCOUNTER 2023-06-24 14:39 | Observation (INO) | payer MEDICARE, SELFPAY ==
[2023-06-24] VITALS (7 sets, daily range): BP systolic 94–120; BP diastolic 49–82; PULSE 73–108; RESP 16–20; TEMP 36.4–37; O2SAT 97–100; BMI 17.6; BMI 19.1
[2023-06-24 15:27] LABS: Basophils % 0.2 % (0.1-2.0); Eosinophils # 0.1 K/mm3 (0.0-0.4); Eosinophils % 0.9 % (0.1-12.0); Hematocrit 35.6 % (37.0-47.0); Hemoglobin 11.6 g/dL (12.2-16.2); Lymphocytes # 0.7 K/mm3 (0.7-4.5); Lymphocytes % 5.9 % (10-50); Mean Corpuscular HGB Conc 32.6 g/dL (31.8-35.4); Mean Corpuscular Hemoglobin 34.7 pg (27.0-31.2); Mean Corpuscular Volume 106.5 fl (81-99); Mean Platelet Volume 8.2 fl (7.4-10.4); Monocytes # 0.5 K/mm3 (0.1-1.0); Monocytes % 4.8 % (1.7-9.3); Neutrophils # 9.7 K/mm3 (1.8-7.8); Neutrophils % 88.2 % (37.0-80.0); Platelet Count 285 K/mm3 (142-424); Red Blood Count 3.35 M/mm3 (4.20-5.40); Red Cell Distribution Width 13.3 % (11.5-17.5)
[2023-06-24 15:28] LABS: MANUAL DIFFERENTIAL MANUAL DIFFERENTIAL (MANUAL DIFF)
[2023-06-24 15:28] LABS: Microscopic, Urine URINE MICROSCOPIC (MICROSCOPIC)
[2023-06-24 15:29] LABS: Chloride 106 mmol/L (98-107); Potassium 3.9 mmoL/L (3.5-5.1); Sodium 137 mmol/L (136-145)
[2023-06-24 15:31] LABS: Appearance,Urine CLEAR (Clear); Bilirubin,Urine Negative (Negative); Blood, Urine Negative (Negative); Color,Urine YELLOW (Yellow); Glucose,Urine (UA) Negative (Negative); Ketones,Urine Negative (Negative); Leukocyte Esterase,Urine Negative (Negative); Nitrate,Urine Negative (Negative); Protein,Urine 1+ (Negative); Specific Gravity, Urine >= 1.030 (1.005-1.030); Urobilinogen,Urine 0.2 EU/dl (0.2)
[2023-06-24 15:32] LABS: Alanine Aminotransferase 23 U/L (12-78); Albumin Level 3.8 g/dl (3.5-5.0); Albumin/Globulin Ratio 1.1 (1.1-1.8); Alkaline Phosphatase 85 U/L (38-126); Anion Gap 13.9 mEq/L (5-15); Aspartate Amino Transferase 32 U/L (14-36); Bilirubin,Total 0.4 mg/dl (0.2-1.3); Blood Urea Nitrogen 42 mg/dl (7-17); Carbon Dioxide 21 mmol/L (22.0-30.0); Creatinine Clearance Estimated 32 mL/min (50-200); Estimated Glomerular Filt Rate 69 ml/min (>60); GFR (African American) 83 ML/MIN (>60); Globulin 3.5 g/dL (1.3-3.2); Total Protein,Serum 7.3 g/dl (6.3-8.2)
[2023-06-24 15:33] LABS: Calcium 9.7 mg/dl (8.4-10.2); Glucose 177 mg/dl (74-100)
--- NOTE | 2023-06-24 15:35 | ED_ITS ---
Discharge Plan Disposition Patient Disposition: Admitted Chief Complaint: Extremity Problem,Nontraumatic Prescriptions Prescriptions: No Action metformin 500 mg tablet 500 mg PO DAILY Patient Comments: TAKE 1 TABLET BY MOUTH ONCE DAILY simvastatin 40 mg tablet 40 mg PO DAILY Patient Comments: TAKE 1 TABLET BY MOUTH ONCE DAILY AT BEDTIME levothyroxine 75 mcg tablet 75 mcg PO DAILY Patient Comments: TAKE 1 TABLET BY MOUTH ONCE DAILY levofloxacin 500 mg tablet 500 mg PO DAILY Qty: 7 0RF bisoprolol fumarate 5 mg Tablet 2.5 mg PO DAILY Qty: 30 5RF Referrals Follow up/Referrals: Vitor Greenfield MD [Primary Care Provider] - See instructions Clinical Impressions Clinical Impression: Acute deep vein thrombosis (DVT) of right lower extremity Qualifiers: Affected thrombotic vein of extremity: femoral Qualified Code(s): I82.411 - Acute embolism and thrombosis of right femoral vein Discharge ED Provider: Aj Shin General Adult HPI General Chief complaint: Extremity Problem,Nontraumatic Stated complaint: upper leg swelling Time Seen by Provider: 06/24/23 15:07 Mode of Arrival: Wheelchair Source of Information: Patient and Relative Limitations: Physical Limitations Description of Symptoms (Recalled from ER Triage Doc. by RN): trouble urinating. edema and redness to RLE History of Present Illness HPI narrative: 82-year-old history of hypertension, hyperlipidemia, diabetes, paroxysmal A-fib not on anticoagulation, hypothyroidism, colorectal cancer status post resection and colostomy in place with recent recurrence and lymphedema right lower extremity presenting with leg swelling and urinary symptoms. Urinary symptoms started getting worse over the past couple of days. Decreased urine output with dysuria with associated lower abdominal fullness. Patient has had no vomiting, changes in mental status, hematuria, flank pain, or any other concerns. Does not stay hydrated at home, per family at bedside. Patient also has significant right lower extremity swelling, thought to be related to lymph node involvement of recurrent colorectal cancer, but patient's family is concerned about DVTs. Related Data Home Medications Medication Instructions Recorded Confirmed levothyroxine 75 mcg tablet 75 mcg PO DAILY Hypothyroidism 04/30/22 06/16/22 metformin 500 mg tablet 500 mg PO DAILY Diabetes 04/30/22 06/16/22 simvastatin 40 mg tablet 40 mg PO DAILY Hyperlipidemia 04/30/22 06/16/22 Previous Rx's Medication Instructions Recorded bisoprolol fumarate 5 mg tablet 2.5 mg PO DAILY #30 tabs 05/06/22 levofloxacin 500 mg tablet 500 mg PO DAILY #7 tabs 02/10/23 Allergies Allergy/AdvReac Type Severity Reaction Status Date / Time No Known Allergies Allergy Verified 06/16/22 14:29 [facility] Disclaimer: The information contained in this section may have been updated after the patient was seen, as this information can be updated by other users. Medical History (Updated 06/24/23 @ 16:18 by Aj Shin MD) Diabetes HTN (hypertension) Hyperlipidemia Hypothyroidism Paroxysmal A-fib Surgical History History of cholecystectomy Family History Other No significant family history Social History Smoking Status: Never smoker alcohol intake: never current occupational status: unemployed Travel in the last 8 weeks: None ROS Obtained: Yes All systems reviewed & no additional complaints except as documented Physical Exam General General appearance: alert and in no apparent distress Head Head exam: atraumatic and normocephalic Eye Eye exam: Present normal appearance, PERRL and EOMI ENT ENT exam: Present mucous membranes moist Neck Neck exam: Present normal inspection, full ROM and trachea midline Respiratory Respiratory exam: Absent respiratory distress, wheezes, stridor, accessory muscle use or prolonged expiratory phase Cardiovascular Cardiovascular exam: Present normal rhythm Abdominal Exam Abdominal exam: Present soft; Absent distention, tenderness, guarding, rebound or rigidity Extremities Exam Extremities exam: Present edema and other (Nonpitting edema, fusiform swelling, mild bluish discoloration right lower extremity. Pulses intact) Neurological Exam Neurological exam: Present alert, oriented X3, CN II-XII intact and normal gait; Absent motor sensory deficit Skin Skin exam: Present warm and dry; Absent diaphoresis or erythema Medical Decision Making Medical Records Medical records reviewed: Yes I reviewed the patient's medical records. Tim Inquiry Pt receiving controlled substance: No Tim was queried for this patient: No Vital Signs: 06/24/23 14:50 06/24/23 15:55 Temperature 97.6 F Temperature Source Oral Pulse Rate 73 Pulse Rate [Right Radial] 108 H Respiratory Rate 18 Blood Pressure 120/75 Blood Pressure [Right Arm] 112/82 Blood Pressure Mean 94 Blood Pressure Mean [Right Arm] 92 02 Sat by Pulse Oximetry 100 98 Oxygen Delivery Method Room Air Lab Data Lab Results 06/24/23 15:01: WBC 11.0 H, RBC 3.35 L, Hgb 11.6 L, Hct 35.6 L, MCV 106.5 H, MCH 34.7 H, MCHC 32.6, RDW 13.3, Plt Count 285, MPV 8.2, Neut % (Auto) 88.2 H, Lymph % (Auto) 5.9 L, [place] % (Auto) 4.8, Eos % (Auto) 0.9, Baso % (Auto) 0.2, Neut # (Auto) 9.7 H, Lymph # (Auto) 0.7, [place] # (Auto) 0.5, Eos # (Auto) 0.1, Baso # (Auto) 0.0, Total Counted 100, Neutrophils % (Manual) 89 H, Lymphocytes % (Manual) 10, Monocytes % (Manual) 1 L, Platelet Estimate Normal, Macrocytosis 1+, Sodium 137, Potassium 3.9, Chloride 106, Carbon Dioxide 21 L, Anion Gap 13.9, BUN 42 H, Creatinine 0.80, Estimated Creat Clear 32, Estimated GFR 69, Est GFR ( Amer) 83, Glucose 177 H, Calcium 9.7, Total Bilirubin 0.4, AST 32, ALT 23, Alkaline Phosphatase 85, Total Protein 7.3, Albumin 3.8, Globulin 3.5 H, Albumin/Globulin Ratio 1.1 06/24/23 15:15: Urine Color Yellow, Urine Appearance Clear, Urine pH 6.0, Ur Specific Melvin >= 1.030, Urine Protein 1+, Urine Glucose (UA) Negative, Urine Ketones Negative, Urine Blood Negative, Urine Nitrate Negative, Urine Bilirubin Negative, Urine Urobilinogen 0.2, Ur Leukocyte Esterase Negative, Urine RBC None, Urine WBC Occasional, Ur Squamous Epith Cells None, Urine Bacteria 1+ 06/24/23 15:01 06/24/23 15:01 Orders (Tests/Meds): ED MEDICATIONS Generic Name Dose Route Start Last Admin Trade Name Freq PRN Reason Stop Dose Admin Enoxaparin Sodium 45 mg 06/24/23 16:00 Enoxaparin 100mg/Ml Syringe 1 mg/kg (45 mg) 07/24/23 15:59 SQ Q12H DONALD Lactated Ringer's 1,000 mls @ 999 mls/hr 06/24/23 15:19 06/24/23 15:41 Lactated Ringer's 1000 Ml Bag IV 06/24/23 16:19 999 mls/hr .Q1H1M ONE Administration ORDERS Category Date Time Status POCUS Point of Care (ER Only) Stat Exams 06/24/23 15:14 Ordered CBC w/Auto Diff [Complete Blood Count Auto Diff] Stat Lab 06/24/23 15:01 Completed CMP [Comprehensive Metabolic Panel] Stat Lab 06/24/23 15:01 Completed UA [Urinalysis and Microscopic] Stat Lab 06/24/23 15:15 Completed Medical Decision Narrative: 82-year-old history of hypertension, hyperlipidemia, diabetes, paroxysmal A-fib not on anticoagulation, hypothyroidism, colorectal cancer status post resection and colostomy in place with recent recurrence and lymphedema right lower extremity presenting with leg swelling and urinary symptoms. Urinary symptoms started getting worse over the past couple of days. Decreased urine output with dysuria with associated lower abdominal fullness. Patient has had no vomiting, changes in mental status, hematuria, flank pain, or any other concerns. Does not stay hydrated at home, per family at bedside. Patient also has significant right lower extremity swelling, thought to be related to lymph node involvement of recurrent colorectal cancer, but patient's family is concerned about DVTs. History was obtained via conversation with patient and family. On arrival, patient hemodynamically stable, alert, oriented x4, appropriate, GCS 15, moving all extremities spontaneously, pupils equal and reactive to light. Full physical exam performed and significant for no abdominal tenderness on my exam, the patient does have ostomy bag in place in the mid abdomen. No evidence of blood in the output. No abdominal tenderness or distention. Right lower extremity concerning for large lymphadenopathy in the right groin with associated distal swelling and discoloration. Nonpitting edema, neurovascularly intact. Differential includes DVT, dehydration, UTI, pyelonephritis, bladder outlet obstruction, metastases, among others. Patient was given IV fluids for symptomatic management and correction of underlying abnormalities. Workup independently interpreted and significant for large right lower extremity DVT extending from common iliac vein to mid right lower leg veins. Nonactionable CBC or chemistry. Kidney function normal. Urinalysis without con cern for UTI On reevaluation, patient remains at baseline. Patient was given 1 Mg per KG subcutaneous Lovenox [address] Evangelista was contacted for admission. 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 Because patient high risk for clinical decompensation, deemed appropriate for inpatient admission. Results were relayed to patient who voiced understanding and patient was agreeable to inpatient admission and management. Patient was admitted to the hospital for further definitive management. Procedures Limited Ultrasound Indication:: Limited DVT ultrasound Indication: Limited compression ultrasonography of the right lower extremity was performed to evaluate for non-compressibility of the deep veins in the patient. The ultrasound was performed with the following indications, as noted in the H&P: Right leg Identified structures: RIGHT or LEFT or BILATERAL common femoral vein, femoral vein, popliteal vein were examined. Findings: Lower extremity: Right CFV: Noncompressible Right FV: Noncompressible Right Popliteal vein: Noncompressible Impression: Large right lower extremity DVT extending to pelvic vessels Images were saved to permanent archive The study was technically adequate CPT: 96609-56-EQ 69612-85-QE [id number] (complete bilateral study) This study was performed by me, and I personally interpreted all images/videos. Based on my clinical judgement, these images were adequate and not necessitate further imaging. Critical Care Critical Care Time Critical Care Time: No
[2023-06-24] MEDS: LACTATED RINGERS 1000ML 1,000 ML 999 ML IV (15:41)
--- NOTE | 2023-06-24 15:43 | PC.NURSE ---
dr boudreaux paged from [facility] for possible admission of pt. pt pcp is dr keys.
[2023-06-24 15:44] LABS: Lymphocytes % 10 % (10-50); Macrocytosis 1+; Monocytes % 1 % (2-9); Neutrophils % 89 % (42-76); Platelet Estimate Normal; Total Cells Counted 100
[2023-06-24 15:56] LABS: Bacteria,Urine 1+ /lpf; WBC,Urine Occasional #/hpf (0-3)
--- NOTE | 2023-06-24 16:11 | PC.NURSE ---
Dr. Evangelista paged again
[2023-06-24] MEDS: ENOXAPARIN 100MG/ML SYRINGE 45 MG SQ (16:41)
--- NOTE | 2023-06-24 16:58 | PC.NURSE ---
report called to kaushik on second floor
--- NOTE | 2023-06-24 17:10 | PC.NURSE ---
arrived to floor by w/c from ED
[2023-06-24] MEDS: Dex 5% in 0.45% NaCl 1,000 ML 100 ML IV (18:56)
--- NOTE | 2023-06-24 21:52 | P.HP_ITS ---
History of Present Illness *Admission Date: 06/24/23 *Reason for visit:: Edema of the right leg *History of present illness: 82 y.o. female with history of anal squamous cell carcinoma and resection of lesion of the right colon by hemicolectomy. The hemicolectomy and Biswas's pouch was 11/07/22. Chemo and radiation was completed 01/26/23 with significant improvement of the anal lesion. The colon lesion was described as a tubulovillous adenoma with high grade dysplasia. There was a sigmoid polyp also described as TVA. Presenting in the ER a duplex of the right leg revealed a DVT. Report has not been read by radiology. The patient was started on Enoxaprin injections 45mg bid. Diabetic and with hypothyroidism. also treated for hyperlipidemia. [facility] Disclaimer: The information contained in this section may have been updated after the patient was seen, as this information can be updated by other users. Medical History (Updated 06/24/23 @ 22:09 by Chelsi Evangelista MD) Anal squamous cell carcinoma Diabetes HTN (hypertension) Hyperlipidemia Hypothyroidism Paroxysmal A-fib Rectal cancer Tubular adenoma of colon Surgical History History of cholecystectomy Family History Other No significant family history Social History (Updated 06/24/23 @ 17:36 by Anika Blakely, RN) Smoking Status: Never smoker alcohol intake: never current occupational status: unemployed Travel in the last 8 weeks: None Review of Systems Review of Systems Review of systems:: unable to obtain Meds Home Medications and Allergies Home Medications Medication Instructions Recorded Confirmed Type levothyroxine 75 mcg tablet 75 mcg PO DAILY Hypothyroidism 04/30/22 06/24/23 History metformin 500 mg tablet 500 mg PO DAILY Diabetes 04/30/22 06/24/23 History simvastatin 40 mg tablet 40 mg PO DAILY Hyperlipidemia 04/30/22 06/24/23 History ferrous sulfate 325 mg (65 mg 325 mg PO DAILY 06/24/23 06/24/23 History iron) tablet (FeroSul) megestrol 40 mg tablet 40 mg PO BID 06/24/23 06/24/23 History New Prescriptions to Start Prescriptions: Allergies Allergy/AdvReac Type Severity Reaction Status Date / Time No Known Allergies Allergy Verified 06/24/23 17:20 Exam Data for Last 24 hours Vital signs and Labs for Last 24 Hours: Temp Pulse Resp BP Pulse Ox O2 Del Method 98.6 F 87 16 94/49 L 97 Room Air 06/24/23 20:00 06/24/23 20:00 06/24/23 20:00 06/24/23 20:00 06/24/23 20:00 06/24/23 20:00 Laboratory Results - last 24 hr 06/24/23 15:01: WBC 11.0 H, RBC 3.35 L, Hgb 11.6 L, Hct 35.6 L, MCV 106.5 H, MCH 34.7 H, MCHC 32.6, RDW 13.3, Plt Count 285, MPV 8.2, Neut % (Auto) 88.2 H, Lymph % (Auto) 5.9 L, [place] % (Auto) 4.8, Eos % (Auto) 0.9, Baso % (Auto) 0.2, Neut # (Auto) 9.7 H, Lymph # (Auto) 0.7, [place] # (Auto) 0.5, Eos # (Auto) 0.1, Baso # (Auto) 0.0, Total Counted 100, Neutrophils % (Manual) 89 H, Lymphocytes % (Manual) 10, Monocytes % (Manual) 1 L, Platelet Estimate Normal, Macrocytosis 1+, Sodium 137, Potassium 3.9, Chloride 106, Carbon Dioxide 21 L, Anion Gap 13.9, BUN 42 H, Creatinine 0.80, Estimated Creat Clear 32, Estimated GFR 69, Est GFR ( Amer) 83, Glucose 177 H, Calcium 9.7, Total Bilirubin 0.4, AST 32, ALT 23, Alkaline Phosphatase 85, Total Protein 7.3, Albumin 3.8, Globulin 3.5 H, Albumin/Globulin Ratio 1.1 06/24/23 15:15: Urine Color Yellow, Urine Appearance Clear, Urine pH 6.0, Ur Specific [place] >= 1.030, Urine Protein 1+, Urine Glucose (UA) Negative, Urine Ketones Negative, Urine Blood Negative, Urine Nitrate Negative, Urine Bilirubin Negative, Urine Urobilinogen 0.2, Ur Leukocyte Esterase Negative, Urine RBC None, Urine WBC Occasional, Ur Squamous Epith Cells None, Urine Bacteria 1+ I & O for Last 24 hours: Intake & Output 06/22/23 06/23/23 06/24/23 06/25/23 11:59 11:59 11:59 11:59 Intake Total 60 / 60 Output Total 100 / 100 Balance -40 / -40 Weight 108 lb 2 oz Constitutional Constitutional: no acute distress Comments: Frail, lying in bed in position. Awake, NAD. *Routine HEENT Exam Head: Present normocephalic Eye: Present PERRL ENT: Present mucous membranes dry *Routine Neck Exam Neck: Present supple and full ROM Routine Chest/Breast/Axilla Exam Chest wall: Absent tenderness *Routine Respiratory Exam Respiratory: Present CTA bilaterally *Routine Cardiovascular Exam Cardiovascular: Present RRR *Routine Abdominal Exam Abdominal: Present soft and other (colostomy); Absent tenderness *Routine Rectal Exam Rectal:: other Comments:: Visual inspection appears without a lesion. Digital exam not performed. *Routine Genitalia Exam Genitalia:: deferred *Routine Extremities Exam Extremities: Present edema (of right leg significantly greater than left) Routine Back/Spine/Pelvis Exam Back/Spine: Present kyphosis *Routine Skin Exam Skin: Present intact *Routine Neurological Exam Neurological: Present alert (awake, NAD) Routine Psychiatric Exam Psychiatric: Present unable to assess Assessment and Plan *Assessment and plan (1) Acute deep vein thrombosis (DVT) of right lower extremity: Status: Acute Qualifiers: Affected thrombotic vein of extremity: femoral Qualified Code(s): I82.411 - Acute embolism and thrombosis of right femoral vein Category: Medical Code(s): I82.401 - Acute embolism and thrombosis of unspecified deep veins of right lower extremity (2) HTN (hypertension): Status: Acute Category: Medical Code(s): I10 - Essential (primary) hypertension (3) Diabetes: Status: Chronic Qualifiers: Diabetes mellitus type: type 2 Diabetes mellitus equipment operator intermodal yard insulin use: without equipment operator intermodal yard use Diabetes mellitus complication status: without complication Qualified Code(s): E11.9 - Type 2 diabetes mellitus without complications Category: Medical Code(s): E11.9 - Type 2 diabetes mellitus without complications (4) Hypothyroidism: Status: Chronic Category: Medical Code(s): E03.9 - Hypothyroidism, unspecified (5) Paroxysmal A-fib: Status: Acute Category: Medical Code(s): I48.0 - Paroxysmal atrial fibrillation (6) Anal squamous cell carcinoma: Status: Acute Category: Medical Code(s): C21.0 - Malignant neoplasm of anus, unspecified (7) Tubular adenoma of colon: Status: Acute Category: Medical Code(s): D12.6 - Benign neoplasm of colon, unspecified Plan DVT, but need to see radiologist reading. Has received injection of Enoxaprin, but Xarelto will be initiated in AM.
[2023-06-25 04:00] VITALS: BP 90/52; PULSE 76; RESP 16; TEMP 36.9; O2SAT 98; BMI 19.1
[2023-06-25] MEDS: Dex 5% in 0.45% NaCl 1,000 ML 100 ML IV ×2 (05:20→17:23)
[2023-06-25] MEDS: RIVAROXABAN 15MG TABLET 15 MG PO ×2 (06:51→17:23)
[2023-06-25 07:39] VITALS: BP 102/60; PULSE 98; RESP 18; TEMP 36.9; O2SAT 99
--- NOTE | 2023-06-25 08:14 | HMH.PHAINT1 ---
Pharmacy Intervention Comments: MEDICATION RECONCILIATION COMPLETED ON PATIENT USING EXTERNAL FILL HISTORY FROM PHARMACY. -GEOVANNY SHIRLEY, JOSE CARLOSD
--- NOTE | 2023-06-25 13:35 | P.PN_ITS ---
Subjective *Date: 06/25/23 *Time: 13:35 Interval history: She has been comfortable overnight. I reviewed her history with her daughter who was present today. I cannot get an official reading on her ultrasound today. I am dependent on the ER interpretation of the ultrasound. She started Xarelto this morning. Medical Exam Vital signs and Labs for Last 24 Hours: Vital Signs Temp Pulse Pulse Resp BP BP Pulse Ox 06/25/23 07:39 98.5 F 98 H 18 102/60 L 99 06/25/23 05:00 06/25/23 04:00 98.4 F 76 16 90/52 L 98 06/25/23 03:00 06/25/23 01:00 06/24/23 23:00 06/24/23 21:00 06/24/23 20:00 98.6 F 87 16 94/49 L 97 06/24/23 18:19 06/24/23 17:00 06/24/23 17:56 98.2 F 95 H 20 107/72 L 99 06/24/23 17:11 98.0 F 86 19 100/65 L 06/24/23 16:30 86 100/65 L 100 06/24/23 16:00 85 114/73 97 06/24/23 15:55 73 120/75 98 06/24/23 14:50 97.6 F 108 H 18 112/82 100 O2 Del Method 06/25/23 07:39 Room Air 06/25/23 05:00 Room Air 06/25/23 04:00 Room Air 06/25/23 03:00 Room Air 06/25/23 01:00 Room Air 06/24/23 23:00 Room Air 06/24/23 21:00 Room Air 06/24/23 20:00 Room Air 06/24/23 18:19 Room Air 06/24/23 17:00 Room Air 06/24/23 17:56 Room Air 06/24/23 17:11 06/24/23 16:30 Room Air 06/24/23 16:00 Room Air 06/24/23 15:55 06/24/23 14:50 Room Air Intake and Output 06/25/23 06/25/23 06/25/23 03:59 11:59 19:59 Intake Total 120 / 415 235 / 415 210 / 210 Output Total 100 / 200 0 / 200 Balance 20 / 215 235 / 215 210 / 210 Intake: Intake, Oral Amount 120 / 415 235 / 415 Output: Output, Urine Amount 0 / 0 0 / 0 Output, Stool Amount 100 / 200 Other: Number of Unmeasured Voids 1 1 Number of Bowel Movements 1 Weight 108 lb Laboratory Results - last 24 hr 06/24/23 15:01: WBC 11.0 H, RBC 3.35 L, Hgb 11.6 L, Hct 35.6 L, MCV 106.5 H, MCH 34.7 H, MCHC 32.6, RDW 13.3, Plt Count 285, MPV 8.2, Neut % (Auto) 88.2 H, Lymph % (Auto) 5.9 L, [place] % (Auto) 4.8, Eos % (Auto) 0.9, Baso % (Auto) 0.2, Neut # (Auto) 9.7 H, Lymph # (Auto) 0.7, [place] # (Auto) 0.5, Eos # (Auto) 0.1, Baso # (Auto) 0.0, Total Counted 100, Neutrophils % (Manual) 89 H, Lymphocytes % (Manual) 10, Monocytes % (Manual) 1 L, Platelet Estimate Normal, Macrocytosis 1+, Sodium 137, Potassium 3.9, Chloride 106, Carbon Dioxide 21 L, Anion Gap 13.9, BUN 42 H, Creatinine 0.80, Estimated Creat Clear 32, Estimated GFR 69, Est GFR ( Amer) 83, Glucose 177 H, Calcium 9.7, Total Bilirubin 0.4, AST 32, ALT 23, Alkaline Phosphatase 85, Total Protein 7.3, Albumin 3.8, Globulin 3.5 H, Albumin/Globulin Ratio 1.1 06/24/23 15:15: Urine Color Yellow, Urine Appearance Clear, Urine pH 6.0, Ur Specific [place] >= 1.030, Urine Protein 1+, Urine Glucose (UA) Negative, Urine Ketones Negative, Urine Blood Negative, Urine Nitrate Negative, Urine Bilirubin Negative, Urine Urobilinogen 0.2, Ur Leukocyte Esterase Negative, Urine RBC None, Urine WBC Occasional, Ur Squamous Epith Cells None, Urine Bacteria 1+ I & O for Labs for Last 24 Hours: Intake & Output 06/23/23 06/24/23 06/25/23 06/26/23 11:59 11:59 11:59 11:59 Intake Total 415 / 415 210 / 210 Output Total 200 / 200 Balance 215 / 215 210 / 210 Weight 108 lb Head: Present normocephalic Neck: Present normal inspection Respiratory: Present CTA bilaterally; Absent respiratory distress Cardiac: Present Reg Rate and Rhythm GI: Present soft; Absent distention (Colostomy functioning) or tenderness Comment:: The lymph node of the right groin is enlarged and firm measuring 4 cm x 3 cm. Comment:: She does have edema of the right thigh which seems decreased from admission. She has full range of motion of the leg and her feet. Skin: Present intact Comment:: She has significant hearing deficit. Assessment and Plan *Assessment and plan (1) Acute deep vein thrombosis (DVT) of right lower extremity: Status: Acute Qualifiers: Affected thrombotic vein of extremity: femoral Qualified Code(s): I82.411 - Acute embolism and thrombosis of right femoral vein Category: Medical Code(s): I82.401 - Acute embolism and thrombosis of unspecified deep veins of right lower extremity (2) Anal squamous cell carcinoma: Status: Acute Category: Medical Code(s): C21.0 - Malignant neoplasm of anus, unspecified (3) Tubular adenoma of colon: Status: Acute Category: Medical Code(s): D12.6 - Benign neoplasm of colon, unspecified (4) HTN (hypertension): Status: Acute Category: Medical Code(s): I10 - Essential (primary) hypertension (5) Paroxysmal A-fib: Status: Acute Category: Medical Code(s): I48.0 - Paroxysmal atrial fibrillation (6) Diabetes: Status: Chronic Qualifiers: Diabetes mellitus type: type 2 Diabetes mellitus skilled nursing insulin use: without termite inspector use Diabetes mellitus complication status: without complication Qualified Code(s): E11.9 - Type 2 diabetes mellitus without co mplications Category: Medical Code(s): E11.9 - Type 2 diabetes mellitus without complications (7) Hypothyroidism: Status: Chronic Category: Medical Code(s): E03.9 - Hypothyroidism, unspecified Plan Without a definitive reading on the venous duplex I feel compelled to keep her in the hospital setting. Rakan has been introduced.
[2023-06-25 15:16] VITALS: BP 107/66; PULSE 78; RESP 16; TEMP 36.9; O2SAT 97
--- NOTE | 2023-06-25 18:33 | PC.NURSE ---
Patient a&ox4 and vss. Patient tolerating po xarelto for dvt and fluids. Patient states hoping to be discharged tomorrow.
[2023-06-25 20:00] VITALS: BP 111/58; PULSE 88; RESP 18; TEMP 37; O2SAT 98
[2023-06-25] MEDS: ASPIRIN EC 81MG TABLET 81 MG PO (20:55)
[2023-06-25] MEDS: PRAVASTATIN 40MG TAB 40 MG PO (20:55)
[2023-06-26] MEDS: Dex 5% in 0.45% NaCl 1,000 ML 100 ML IV ×2 (03:25→14:04)
[2023-06-26] MEDS: ACETAMINOPHEN 325MG TAB 650 MG PO (03:26)
[2023-06-26 04:00] VITALS: BP 133/85; PULSE 102; RESP 16; TEMP 36.7; O2SAT 95; BMI 20.3
[2023-06-26] MEDS: LEVOTHYROXINE 75MCG (0.075MG) TAB 75 MCG PO (06:39)
[2023-06-26] MEDS: METFORMIN 500MG TABLET 500 MG PO (06:39)
[2023-06-26] MEDS: RIVAROXABAN 15MG TABLET 15 MG PO (06:39)
[2023-06-26 08:00] VITALS: BP 109/65; PULSE 83; RESP 18; TEMP 36.8; O2SAT 99
--- NOTE | 2023-06-26 08:47 | CA_ITS ---
FINAL REPORT TECHNIQUE: Multiple transverse and longitudinal images were performed of the right femoral-popliteal deep venous system with augmentation and compression maneuvers. CLINICAL HISTORY: Right leg edema, patient has metastatic colon/rectal cancer, known mass/palpable knot in right groin lymph node. HTN, HLD, DM. COMPARISON: None FINDINGS: Visible thrombus in the common femoral vein, femoral vein, and popliteal vein. There is a 3.6 x 2.2 cm presumed necrotic lymph node in the right inguinal region. Metastatic disease not excluded. IMPRESSION: DVT right common femoral, femoral, and popliteal vein. Presumed necrotic lymph node right inguinal region, metastatic disease not excluded. Reviewed, Interpreted and Dictated by Isidro Sterling III, MD Transcribed by Arlene Aabd Authenticated and [facility]
--- NOTE | 2023-06-26 08:49 | P.PN_ITS ---
Subjective *Date: 06/26/23 *Time: 09:01 Interval history: Patient is very anxious to go home. She did sleep some. Daughter did stay with her throughout the night. She skipped eat on that right upper leg. She denies pain and shortness of breath. She did eat some breakfast. Discussed ultrasound completed in the emergency room. This is not transmitted to radiology and thus will have to be repeated. Ultrasound ordered. Medical Exam Vital signs and Labs for Last 24 Hours: Vital Signs Temp Pulse Resp BP Pulse Ox O2 Del Method 06/26/23 08:00 98.3 F 83 18 109/65 L 99 Room Air 06/26/23 04:00 98.0 F 102 H 16 133/85 95 Room Air 06/26/23 01:00 Room Air 06/25/23 22:57 Room Air 06/25/23 21:00 Room Air 06/25/23 20:00 98.6 F 88 18 111/58 L 98 Room Air 06/25/23 15:16 98.4 F 78 16 107/66 L 97 Room Air Intake and Output 06/25/23 06/26/23 06/26/23 19:59 03:59 11:59 Intake Total 330 / 330 120 / 450 170 / 620 Output Total 100 / 100 0 / 100 Balance 330 / 330 20 / 350 170 / 520 Intake: Intake, Oral Amount 330 / 330 120 / 450 170 / 620 Output: Output, Urine Amount 100 / 100 0 / 100 Other: Number of Unmeasured Voids 0 1 Weight 115 lb Patient Weight 06/26/23 11:59 Weight 115 lb I & O for Labs for Last 24 Hours: Intake & Output 06/23/23 06/24/23 06/25/23 06/26/23 11:59 11:59 11:59 11:59 Intake Total 415 / 415 620 / 620 Output Total 200 / 200 100 / 100 Balance 215 / 215 520 / 520 Weight 108 lb 115 lb Constitutional: Present no acute distress and thin Comment:: Appears comfortable and is conversant Respiratory: Present CTA bilaterally (Anteriorly and posteriorly) Cardiac: Present Reg Rate and Rhythm GI: Present soft, normal bowel sounds and mass (Palpable hard mass in right inguinal area); Absent distention or guarding Comments:: Functioning colostomy in place Extremities: Present full ROM and edema; Absent tenderness Comment:: Right lower and upper leg. 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 Category: Medical Code(s): C21.0 - Malignant neoplasm of anus, unspecified (3) Tubular adenoma of colon: Status: Acute Category: Medical Code(s): D12.6 - Benign neoplasm of colon, unspecified (4) HTN (hypertension): Status: Acute Category: Medical Code(s): I10 - Essential (primary) hypertension (5) Paroxysmal A-fib: Status: Acute Category: Medical Code(s): I48.0 - Paroxysmal atrial fibrillation (6) Diabetes: Status: Chronic Qualifiers: Diabetes mellitus complication status: without complication Diabetes mellitus penitentiary insulin use: without long term care administrator use Diabetes mellitus type: type 2 Qualified Code(s): E11.9 - Type 2 diabetes mellitus without complications Category: Medical Code(s): E11.9 - Type 2 diabetes mellitus without complications (7) Hypothyroidism: Status: Chronic Category: Medical Code(s): E03.9 - Hypothyroidism, unspecified Plan Venous Doppler ultrasound ordered on the right leg. Will await results of this. Continue with heat application. She has been started on Xarelto.
--- NOTE | 2023-06-26 12:44 | CA_ITS ---
APPROVED REPORT EXAM: Comprehensive 2D, Doppler, and color-flow Echocardiogram Cutter Operator Tile: Viviane Garcia RVT Ht: 5 ft 2 in Wt: 115lbs BSA: 1.51 BP: 109/65 mmHg Indications: EDEMA,ANAL CA,A-FIB,DM TDS-BEST EXAM POSSIBLE,LIMITED WINDOWS M-Mode Dimensions RVDd 2.09 cm (0.9-2.6) LA Diam 2.99 cm (1.9-4.0) LVDd 3.09 cm (3.5-5.7) LVDs 2.62 cm (3.5-5.7) IVSd 1.44 cm (0.6-1.1) PWd 0.87 cm (0.6-1.1) EF (Teich) 33.20% FS 15.20% EDV (Teich) 37.60 mL ESV (Teich) 25.10 mL LV Diastology E Decel Time 150 (160-240 msec) E/A Ratio 0.6 Aortic Valve KELLI Index 1.16 cm2/m2 AoV Peak Andrade. 197.0 (50-130 cm/s) AO Peak GR. 15.50 mmHg AO Mean GR. 7.80 (<5 mmHg) AO VTI 30.1 (18-25 cm) KELLI (VTI) 1.80 (2.5-4.5 cm2) Mitral Valve MV E Max Andrade. 52.0 (40-130 cm/s) MV A Velocity 82.0 (40-130 cm/s) E/A Ratio 0.63 MV PHT 44.0 ms Pulmonary Valve PV Peak Velocity 107.0 (50-150 cm/s) Tricuspid Valve TR P. Velocity 242.00 cm/s RAP Estimate 10.00 mmHg RVSP 33.40 mmHg Left Ventricle The left ventricle is normal size. The left ventricular systolic function is normal. The left ventricular ejection fraction is within the normal range. There is increased LV wall thickness. There is normal LV segmental wall motion. Transmitral Doppler flow pattern suggests impaired LV relaxation. LVEF is 55%. Right Ventricle The right ventricle is mildly dilated. The right ventricular systolic function is normal. Atria The left atrium size is normal. The right atrium size is normal. There is no Doppler evidence of interatrial shunt. Aortic Valve The aortic valve is mildly thickened. There is no aortic valvular stenosis. No aortic regurgitation is present. Mitral Valve The mitral valve leaflets are mildly thickened. No evidence of mitral valve stenosis. Trace mitral regurgitation. Tricuspid Valve The tricuspid valve leaflets are thin and pliable. Mild tricuspid regurgitation. RVSP is 20-25 mmHg. Pulmonic Valve The pulmonary valve is normal in structure. Trace pulmonic regurgitation. Great Vessels The aortic root is normal in size. The ascending aorta is normal in size. IVC is normal in size and collapses >50% with inspiration. Pericardium There is no pericardial effusion. Other Information Study Quality: Fair Conclusion Normal LV systolic function. Mild RV dilation with normal RV function. Mild TR. RVSP 20-25 mmHg. Electronically signed by : Domonique Rowley MD 06/26/2023 22:27:37
--- NOTE | 2023-06-26 14:30 | P.CONCA_ITS ---
History of Present Illness History of Present Illness Consult date: 06/26/23 Requesting physician: Chelsi Evangelista Chief complaint: rightn leg edema History of present illness: This is an 82-year-old white female who presented to the emergency department complaints of edema in her right leg. The patient has a history of anal squamous cell carcinoma status postresection of the right colon with recurrence. The patient states that she has been having edema in her right leg with swelling and increased urination. She states that her right lower extremity also got red within the last few days. She had decreased urine output put as we ll as abdominal fullness. She decided to come to the emergency department due to the significant increase in her right lower extremity edema because she thought this may be related to the lymph node involvement with her recurrent anal carcinoma. She denies any chest pain or pressure. She denies any shortness of breath. She denies any fever, chills, nausea, vomiting, diarrhea, PND or orthopnea. [facility] Disclaimer: The information contained in this section may have been updated after the pat ient was seen, as this information can be updated by other users. Medical History (Updated 06/26/23 @ 14:34 by Ade Hahn APRN) Anal squamous cell carcinoma Diabetes HTN (hypertension) Hyperlipidemia Hypothyroidism Paroxysmal A-fib Rectal cancer Tubular adenoma of colon Surgical History History of cholecystectomy Family History Other No significant family history Social History (Updated 06/24/23 @ 17:36 by Anika Blakely RN) Smoking Status: Never smoker alcohol intake: never current occupational status: unemployed Travel in the last 8 weeks: None Review of Systems Review of Systems Review of systems:: pertinent systems reviewed and negative unless documented below Constitutional Constitutional: Reports system reviewed and no additional complaints, except as documented Eyes Eyes: Reports system reviewed and no additional complaints, except as documented ENT Ears, Nose, Mouth, and Throat: Reports system reviewed and no additional complaints, except as documented *Cardiovascular Cardiovascular: Reports system reviewed and no additional complaints, except as documented and Reports leg edema (right) *Respiratory Respiratory: Reports system reviewed and no additional complaints, except as documented *Gastrointestinal Gastrointestinal: Reports system reviewed and no additional complaints, except as documented *Genitourinary Genitourinary: Reports system reviewed and no additional complaints, except as documented and Reports difficulty voiding *Musculoskeletal Musculoskeletal: Reports system reviewed and no additional complaints, except as documented Integumentary/Breasts Skin/Breast: Reports system reviewed and no additional complaints, except as documented *Neurologic Neurologic: Reports system reviewed and no additional complaints, except as documented Psychiatric Psychiatric: Reports system reviewed and no additional complaints, except as documented Endocrine Endocrine: Reports system reviewed and no additional complaints, except as documented Hematologic/Lymphatic Hematologic/Lymphatic: Reports system reviewed and no additional complaints, except as documented Allergic/Immunologic Allergic/Immunologic: Reports system reviewed and no additional complaints, e xcept as documented Exam Data for Last 24 hours Vital signs and Labs for Last 24 Hours: Temp Pulse Resp BP Pulse Ox O2 Del Method 98.3 F 83 18 109/65 L 99 Room Air 06/26/23 08:00 06/26/23 08:00 06/26/23 08:00 06/26/23 08:00 06/26/23 08:00 06/26/23 12:32 I & O for Last 24 hours: Intake & Output 06/23/23 06/24/23 06/25/23 06/26/23 23:59 23:59 23:59 23:59 Intake Total 60 / 180 685 / 805 290 / 290 Output Total 200 / 200 100 / 100 800 / 800 Balance -140 / -20 585 / 705 -510 / -510 Weight 108 lb 2 oz 108 lb 115 lb Constitutional Constitutional: no acute distress and average body habitus *Routine HEENT Exam Head: Present normocephalic and atraumatic ENT: Present mucous membranes moist *Routine Neck Exam Neck: Present supple, full ROM and normal carotid upstroke; Absent JVD, carotid bruit or lymphadenopathy *Routine Respiratory Exam Respiratory: Present CTA bilaterally, normal respiratory effort, able to speak in complete sentences and symmetric chest movement *Routine Cardiovascular Exam Cardiovascular: Present RRR, Normal S1 and Normal S2; Absent murmur or gallop *Routine Abdominal Exam Abdominal: Present soft and normoactive bowel sounds; Absent tenderness, distended or organomegaly *Routine Extremities Exam Extremities: Present edema, full ROM, pulses intact and normal capillary refill; Absent cyanosis or clubbing *Routine Skin Exam Skin: Present intact and warm; Absent erythema *Routine Neurological Exam Neurological: Present alert, oriented X3 and CN II-XII intact; Absent sensory deficit or motor deficit Routine Psychiatric Exam Psychiatric: Present normal affect Meds Home Medications and Allergies Home Medications Medication Instructions Recorded Confirmed Type metformin 500 mg tablet 500 mg PO DAILY Diabetes 04/30/22 06/24/23 History simvastatin 40 mg tablet 40 mg PO HS Cholesterol 04/30/22 06/25/23 History ferrous sulfate 325 mg (65 mg 325 mg PO DAILY Supplement 06/24/23 06/24/23 History iron) tablet (FeroSul) megestrol 40 mg tablet 40 mg PO BID 06/24/23 06/24/23 History levothyroxine 50 mcg tablet 50 mcg PO DAILY Thyroid 06/25/23 06/25/23 History New Prescriptions to Start Prescriptions: Allergies Allergy/AdvReac Type Severity Reaction Status Date / Time No Known Allergies Allergy Verified 06/24/23 17:20 Assessment and Plan *Assessment and plan (1) Acute deep vein thrombosis (DVT) of right lower extremity: Status: Acute Qualifiers: Affected thrombotic vein of extremity: femoral Qualified Code(s): I82.411 - Acute embolism and thrombosis of right femoral vein Category: Medical Code(s): I82.401 - Acute embolism and thrombosis of unspecified deep veins of right lower extremity (2) Paroxysmal A-fib: Status: Acute Category: Medical Code(s): I48.0 - Paroxysmal atrial fibrillation (3) HTN (hypertension): Status: Acute Qualifiers: Hypertension type: primary hypertension Qualified Code(s): I10 - Essential (primary) hypertension Category: Medical Code(s): I10 - Essential (primary) hypertension (4) Hyperlipidemia: Status: Chronic Qualifiers: Hyperlipidemia type: mixed hyperlipidemia Qualified Code(s): E78.2 - Mixed hyperlipidemia Category: Medical Code(s): E78.5 - Hyperlipidemia, unspecified (5) Diabetes: Status: Chronic Qualifiers: Diabetes mellitus type: type 2 Diabetes mellitus halfway insulin use: without long term care social worker use Diabetes mellitus complication status: without complication Qualified Code(s): E11.9 - Type 2 diabetes mellitus without complications Category: Medical Code(s): E11.9 - Type 2 diabetes mellitus without complications (6) UTI (urinary tract infection): Status: Acute Qualifiers: Hematuria presence: without hematuria Urinary tract infection type: acute cystitis Qualified Code(s): N30.00 - Acute cystitis without hematuria Category: Medical Code(s): N39.0 - Urinary tract infection, site not specified (7) Anal squamous cell carcinoma: Status: Acute Category: Medical Code(s): C21.0 - Malignant neoplasm of anus, unspecified Plan Plan: 1. Patient has DVT to the right lower extremity. She has been started on Xarelto for anticoagulation. We do recommend Xarelto 15 twice daily for 3 weeks and then Xarelto 20 mg daily thereafter. 2. Will obtain an echocardiogram to make sure that the patient does not have any RV strain. As long as she has no RV strain she can be discharged from a cardiac standpoint. 3. No IVC filter indicated at this time. 4. Her blood pressure is well-controlled. 5. Her LDL goal is less than 100. 6. Further recommendations were made pending the patient's response to treatment and the results of her echocardiogram today. Thank you for the opportunity to help participate in the care of this patient. All recommendations and orders are per Dr. Rowley. Addendum: Echocardiogram shows normal EF with no RV strain. The patient is stable for discharge home today from a cardiac standpoint. She will need to follow-up in cardiology clinic in 1 to 2 weeks on an outpatient basis.
--- NOTE | 2023-06-27 14:35 | CARE MANAGER ---
Spoke with patient and daughter. She states she is doing well and denies questions or concerns. She is taking Xarelto and aware of follow up appointments. CONNER Mckeon
--- NOTE | 2023-07-02 22:42 | EXP.DC.SUM ---
General Admission date:: 06/24/23 Discharge date: 06/26/23 HPI HPI HPI: 82 y.o. female with history of anal squamous cell carcinoma and resection of lesion of the right colon by hemicolectomy. The hemicolectomy and Biswas's pouch was 11/07/22. Chemo and radiation was completed 01/26/23 with significant improvement of the anal lesion. The colon lesion was described as a tubulovillous adenoma with high grade dysplasia. There was a sigmoid polyp also described as TVA. Presenting in the ER a duplex of the right leg revealed a DVT. Report has not been read by radiology. The patient was started on Enoxaprin injections 45mg bid. Diabetic and with hypothyroidism. also treated for hyperlipidemia. Hospital Course Hospital Course Hospital Course: The patient was admitted and received an injection of Lovenox. Xarelto was initiated the next morning. The ultrasound completed in the emergency room was not transmitted to radiology and this had to be repeated. The repeat venous Doppler confirmed a DVT and cardiology was consulted. She had an echo which showed a normal EF with no RV strain. Cardiology felt she was stable to discharge and she will follow-up with them in 1 to 2 weeks on an outpatient basis. They recommended Xarelto 15 mg twice a day for 3 weeks and then Xarelto 20 mg daily thereafter. Exam Data for Last 24 hours Vital signs and Labs for Last 24 Hours: Temp Pulse Resp BP Pulse Ox O2 Del Method 98.3 F 83 18 109/65 L 99 Room Air 06/26/23 08:00 06/26/23 08:00 06/26/23 08:00 06/26/23 08:00 06/26/23 08:00 06/26/23 14:42 Narrative: Constitutional Constitutional: no acute distress Comments: Frail, lying in bed in position. Awake, NAD. *Routine HEENT Exam Head: Present normocephalic Eye: Present PERRL ENT: Present mucous membranes dry *Routine Neck Exam Neck: Present supple and full ROM Routine Chest/Breast/Axilla Exam Chest wall: Absent tenderness *Routine Respiratory Exam Respiratory: Present CTA bilaterally *Routine Cardiovascular Exam Cardiovascular: Present RRR *Routine Abdominal Exam Abdominal: Present soft and other (colostomy); Absent tenderness *Routine Rectal Exam Rectal:: other Comments:: Visual inspection appears without a lesion. Digital exam not performed. *Routine Genitalia Exam Genitalia:: deferred *Routine Extremities Exam Extremities: Present edema (of right leg significantly greater than left) Routine Back/Spine/Pelvis Exam Back/Spine: Present kyphosis *Routine Skin Exam Skin: Present intact *Routine Neurological Exam Neurological: Present alert (awake, NAD) Routine Psychiatric Exam Psychiatric: Present unable to assess DS: Diagnosis Discharge Diagnosis (1) Acute deep vein thrombosis (DVT) of right lower extremity: Status: Acute Code(s): I82.401 - Acute embolism and thrombosis of unspecified deep veins of right lower extremity Qualifiers: Affected thrombotic vein of extremity: femoral Qualified Code(s): I82.411 - Acute embolism and thrombosis of right femoral vein (2) Paroxysmal A-fib: Status: Acute Code(s): I48.0 - Paroxysmal atrial fibrillation (3) HTN (hypertension): Status: Acute Code(s): I10 - Essential (primary) hypertension Qualifiers: Hypertension type: primary hypertension Qualified Code(s): I10 - Essential (primary) hypertension (4) Hyperlipidemia: Status: Chronic Code(s): E78.5 - Hyperlipidemia, unspecified Qualifiers: Hyperlipidemia type: mixed hyperlipidemia Qualified Code(s): E78.2 - Mixed hyperlipidemia (5) Diabetes: Status: Chronic Code(s): E11.9 - Type 2 diabetes mellitus without complications Qualifiers: Diabetes mellitus type: type 2 Diabetes mellitus halfway insulin use: without termination clerk use Diabetes mellitus complication status: without complication Qualified Code(s): E11.9 - Type 2 diabetes mellitus without complications (6) UTI (urinary tract infection): Status: Inactive Code(s): N39.0 - Urinary tract infection, site not specified Qualifiers: Hematuria presence: without hematuria Urinary tract infection type: acute cystitis Qualified Code(s): N30.00 - Acute cystitis without hematuria (7) Anal squamous cell carcinoma: Status: Inactive Code(s): C21.0 - Malignant neoplasm of anus, unspecified Meds Home Medications and Allergies Home Medications Medication Instructions Recorded Confirmed Type metformin 500 mg tablet 500 mg PO DAILY Diabetes 04/30/22 06/24/23 History simvastatin 40 mg tablet 40 mg PO HS Cholesterol 04/30/22 06/25/23 History ferrous sulfate 325 mg (65 mg 325 mg PO DAILY Supplement 06/24/23 06/24/23 History iron) tablet (FeroSul) levothyroxine 50 mcg tablet 50 mcg PO DAILY Thyroid 06/25/23 06/25/23 History rivaroxaban 15 mg tablet (Xarelto) 15 mg PO BIDWMEAL #32 tabs 06/26/23 Rx New Prescriptions to Start Prescriptions: rivaroxaban [Xarelto] Chelsi Evangelista Allergies Allergy/AdvReac Type Severity Reaction Status Date / Time No Known Allergies Allergy Verified 06/24/23 17:20 Discharge Plan Disposition Patient Disposition: Home, Self-Care Condition: Fair Follow up Plan Follow up with: Vitor Greenfield MD [Primary Care Provider] - 06/29/23 2:40 pm Joel Li MD [Staff Physician] - 07/03/23 2:00 pm Prescriptions/Medication Reconciliation: New Xarelto 15 mg Tablet 15 mg PO BIDWMEAL Qty: 32 0RF Rx Instructions: Samples available through the office Continued metformin 500 mg tablet 500 mg PO DAILY Patient Comments: TAKE 1 TABLET BY MOUTH ONCE DAILY simvastatin 40 mg tablet 40 mg PO HS Patient Comments: TAKE 1 TABLET BY MOUTH ONCE DAILY AT BEDTIME ferrous sulfate [FeroSul] 325 mg (65 mg iron) tablet 325 mg PO DAILY Patient Comments: TAKE 1 TABLET BY MOUTH ONCE DAILY levothyroxine 50 mcg tablet 50 mcg PO DAILY Patient Comments: TAKE 1 TABLET BY MOUTH ONCE DAILY IN THE MORNING ON AN EMPTY STOMACH Discontinued megestrol 40 mg tablet 40 mg PO BID Patient Comments: TAKE 1 TABLET BY MOUTH TWICE DAILY Problem Reconciliation Problems Reviewed?: Yes Patient Discharge Instructions ACTIVITY: Limited activity DIET: advance to your usual diet Patient Instructions: Deep Vein Thrombosis, DI for Deep Vein Thrombosis Providers Primary Care Provider: Vitor Greenfield Admit Provider: Chelsi Evangelista Attending Provider: Chelsi Evangelista
== END 2023-06-26 16:25 | disposition home or self-care (01) ==
LOC: ER 16:18 → 2ND 16:43
PROVIDERS: Admitting Provider Family Medicine; Emergency Provider Emergency Medicine; PCP Family Medicine; Visit Provider Family Medicine
DX: I82.411 Acute embolism and thrombosis of right femoral vein (principal); I10 Essential (primary) hypertension; E11.9 Type 2 diabetes mellitus without complications; E03.9 Hypothyroidism, unspecified; I48.0 Paroxysmal atrial fibrillation; C21.0 Malignant neoplasm of anus, unspecified; D12.6 Benign neoplasm of colon, unspecified; E78.2 Mixed hyperlipidemia; N30.00 Acute cystitis without hematuria; Z79.4 Long term (current) use of insulin; Z79.899 Other long term (current) drug therapy
CPT/HCPCS: 80053; 81001; 85007; 85025; 93306; 93971; 99291; G0378

== ENCOUNTER 2023-07-07 16:46 | Emergency (ER) | payer MEDICARE, SELFPAY ==
[2023-07-07 16:48] VITALS: BP 130/82; PULSE 96; RESP 18; TEMP 36.7; O2SAT 98; BMI 19.8
[2023-07-07 16:53] VITALS: BP 130/82; PULSE 75; O2SAT 99
[2023-07-07 17:01] VITALS: BP 127/82; PULSE 91; O2SAT 100
--- NOTE | 2023-07-07 17:39 | ED_ITS ---
Discharge Plan Disposition Patient Disposition: Home, Self-Care Prescriptions Prescriptions: No Action cyanocobalamin (vitamin B-12) 1,000 mcg/mL solution 100 mcg SQ QMONTH metformin 500 mg tablet 500 mg PO DAILY Patient Comments: TAKE 1 TABLET BY MOUTH ONCE DAILY simvastatin 40 mg tablet 40 mg PO HS Patient Comments: TAKE 1 TABLET BY MOUTH ONCE DAILY AT BEDTIME ferrous sulfate [FeroSul] 325 mg (65 mg iron) tablet 325 mg PO DAILY Patient Comments: TAKE 1 TABLET BY MOUTH ONCE DAILY levothyroxine 50 mcg tablet 50 mcg PO DAILY Patient Comments: TAKE 1 TABLET BY MOUTH ONCE DAILY IN THE MORNING ON AN EMPTY STOMACH Xarelto 15 mg Tablet 15 mg PO BIDWMEAL Qty: 32 0RF Rx Instructions: Samples available through the office Referrals Follow up/Referrals: Vitor Greenfield MD [Primary Care Provider] - See instructions Gabriel Leung MD [Staff Physician] - See instructions Activity Restrictions/Add. Instructions Additional Instructions/Restrictions: Call your family doctor to establish care for this visit to the emergency department and schedule follow-up within 48 hours to ensure improvement. If you have any worsening of your condition or any other concerning signs or symptoms, return to the emergency department or your primary care doctor for further evaluation. Dr. Leung's information is here, call to establish care if it will help. Clinical Impressions Clinical Impression: Right leg swelling Instructions Patient Instructions: DI for Deep Vein Thrombosis Discharge ED Provider: Aj Shin General Adult HPI General Chief complaint: Extremity Problem,Nontraumatic Stated complaint: Swollen lymnoid in right thigh right foot purple Time Seen by Provider: 07/07/23 16:52 Mode of Arrival: Wheelchair Source of Information: Patient and Relative Limitations: No Limitations Description of Symptoms (Recalled from ER Triage Doc. by RN): Relative states the patient has a blood clot in her right leg and has been put on blood thinners, however the patient has cancer in her lymph nodes in the groin on that side. Relative states it has gotten bigger and they are worried that it is interferring with the blood flow to her leg. 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 A couple weeks ago, diagnosed with DVT of the right lower extremity. Currently taking Xarelto. Patient was brought in because she is having continued swelling and discoloration of the right foot. Has needle biopsy scheduled for next week. No other current complaints. Related Data Home Medications Medication Instructions Recorded Confirmed metformin 500 mg tablet 500 mg PO DAILY Diabetes 04/30/22 07/03/23 simvastatin 40 mg tablet 40 mg PO HS Cholesterol 04/30/22 07/03/23 ferrous sulfate 325 mg (65 mg 325 mg PO DAILY Supplement 06/24/23 07/03/23 iron) tablet (FeroSul) levothyroxine 50 mcg tablet 50 mcg PO DAILY Thyroid 06/25/23 07/03/23 cyanocobalamin (vitamin B-12) 100 mcg SQ QMONTH 07/03/23 07/03/23 1,000 mcg/mL injection solution Previous Rx's Medication Instructions Recorded rivaroxaban 15 mg tablet (Xarelto) 15 mg PO BIDWMEAL #32 tabs 06/26/23 Allergies Allergy/AdvReac Type Severity Reaction Status Date / Time No Known Allergies Allergy Verified 07/03/23 14:19 [facility] Disclaimer: The information contained in this section may have been updated after the patient was seen, as this information can be updated by other users. Medical History Anal squamous cell carcinoma COVID-19 Diabetes HTN (hypertension) Hyperlipidemia Hypothyroidism Paroxysmal A-fib Rectal cancer Tubular adenoma of colon UTI (urinary tract infection) Surgical History History of cholecystectomy Family History Other No significant family history Social History Smoking Status: Never smoker alcohol intake: never current occupational status: unemployed Travel in the last 8 weeks: None ROS Obtained: Yes All systems reviewed & no additional complaints except as documented Physical Exam General General appearance: alert and in no apparent distress Head Head exam: atraumatic and normocephalic Eye Eye exam: Present normal appearance, PERRL and EOMI ENT ENT exam: Present mucous membranes moist Neck Neck exam: Present normal inspection, full ROM and trachea midline Respiratory Respiratory exam: Absent respiratory distress, wheezes, stridor, accessory mus rebecca use or prolonged expiratory phase Cardiovascular Cardiovascular exam: Present normal rhythm Abdominal Exam Abdominal exam: Present soft; Absent distention, tenderness, guarding, rebound or rigidity Extremities Exam Extremities exam: Absent edema Neurological Exam Neurological exam: Present alert, oriented X3, CN II-XII intact and normal gait; Absent motor sensory deficit Skin Skin exam: Present warm and dry; Absent diaphoresis or erythema Medical Decision Making Medical Records Medical records reviewed: Yes I reviewed the patient's medical records. Tim Inquiry Pt receiving controlled substance: No Tim was queried for this patient: No Vital Signs: 07/07/23 16:48 07/07/23 16:53 07/07/23 17:01 Temperature 98.1 F Temperature Source Oral Pulse Rate 75 91 H Pulse Rate [Radial] 96 H Respiratory Rate 18 Blood Pressure 130/82 127/82 Blood Pressure [Right Arm] 130/82 Blood Pressure Mean [Right Arm] 98 Blood Pressure Source Blood Pressure Source [Right Arm] Automatic Cuff Blood Pressure Position Blood Pressure Position [Right Arm] Sitting 02 Sat by Pulse Oximetry 98 99 100 Oxygen Delivery Method Room Air Room Air Room Air 07/07/23 17:50 Temperature 98.1 F Temperature Source Oral Pulse Rate 91 H Pulse Rate [Radial] Respiratory Rate 18 Blood Pressure 127/82 Blood Pressure [Right Arm] Blood Pressure Mean [Right Arm] Blood Pressure Source Automatic Cuff Blood Pressure Source [Right Arm] Blood Pressure Position Sitting Blood Pressure Position [Right Arm] 02 Sat by Pulse Oximetry Oxygen Delivery Method Room Air Orders (Tests/Meds): ED MEDICATIONS Discontinued Medications Generic Name Dose Route Start Last Admin Trade Name Freq PRN Reason Stop Dose Admin Sodium Chloride 10 ml 07/07/23 17:07 Sodium Chloride 0.9% 10ml Flush Syringe IV 08/06/23 17:06 NEEDED PRN Maintain IV Site Medical Decision Narrative: 82-year-old female history of colorectal cancer with recurrent cancer in the right groin presenting with right lower extremity swelling. A couple weeks ago, diagnosed with DVT of the right lower extremity. Currently taking Xarelto. Patient was brought in because she is having continued swelling and discoloration of the right foot. Has needle biopsy scheduled for next week. No other current complaints. History was obtained via conversation with patient and family. On arrival, patient hemodynamically stable, alert, appropriate, GCS 15, moving all extremities spontaneously, pupils equal and reactive to light. Full physical exam performed and significant for well-appearing woman in no acute distress. Right lower extremity significantly improved from the last time I saw her. Mild pitting edema in the right foot, but neurovascularly intact. She does have large, stable swelling in her right groin concerning for malignancy, which is likely causing swelling and responsible for previous DVT of her right lower extremity. Normal ostomy output Differential includes dependent versus lymphedema. Because patient not having any new symptoms, right lower extremity exam with pitting edema which is to be expected in the setting of current malignancy. No further workup is deemed necessary. Patient does have appropriate follow-up outpatient and family is able to get her to that point. Because patient at baseline without signs or symptoms of clinical decompensation, deemed appropriate for discharge. Results were relayed to patient and family who voiced understanding and were agreeable to outpatient management and follow up. At the time of discharge the patient was hemodynamically stable, tolerating PO, and mobilizing appropriately. Critical Care Critical Care Time Critical Care Time: No
[2023-07-07 17:50] VITALS: BP 127/82; PULSE 91; RESP 18; TEMP 36.7; O2SAT 100
== END 2023-07-07 17:51 | disposition home or self-care (01) ==
PROVIDERS: Emergency Provider Emergency Medicine; PCP Family Medicine
DX: R22.41 Localized swelling, mass and lump, right lower limb (principal); E11.9 Type 2 diabetes mellitus without complications; E78.5 Hyperlipidemia, unspecified; E03.9 Hypothyroidism, unspecified; I10 Essential (primary) hypertension; Z79.84 Long term (current) use of oral hypoglycemic drugs; Z86.718 Personal history of other venous thrombosis and embolism
CPT/HCPCS: 99283

== ENCOUNTER 2023-09-01 10:50 | Emergency (ER) | payer MEDICARE, SELFPAY ==
[2023-09-01] VITALS (12 sets, daily range): BP systolic 93–108; BP diastolic 59–70; PULSE 79–125; RESP 14–18; TEMP 36.6; O2SAT 96–100; BMI 16.9
--- NOTE | 2023-09-01 10:55 | PC.NURSE ---
Dr. Shin at BS for pt eval
--- NOTE | 2023-09-01 11:08 | XR_ITS ---
FINAL REPORT CLINICAL HISTORY: weakness COMPARISON: None FINDINGS: A single portable view of the chest was obtained. A right-sided chest port is present. The heart size and pulmonary vascularity are within normal limits. The mediastinum is within normal limits. There is elevation of the left hemidiaphragm. There are bibasilar opacities which are favored to represent atelectasis over pneumonia. There is degenerative change of both shoulders. IMPRESSION: Bibasilar opacities favor atelectasis over pneumonia. Reviewed, Interpreted and Dictated by Isidro Sterling III, MD Transcribed by Arlene Abad Authenticated and [facility]
[2023-09-01] MEDS: LACTATED RINGERS 1000ML 1,000 ML 999 ML IV ×2 (11:18→12:48)
--- NOTE | 2023-09-01 11:19 | ED_ITS ---
Discharge Plan Disposition Patient Disposition: Home, Self-Care Prescriptions Prescriptions: New sulfamethoxazole-trimethoprim [Bactrim DS] 800-160 mg tablet 1 tab PO BID 5 Days Qty: 10 0RF cephalexin 500 mg capsule 1,000 mg PO BID 5 Days Qty: 20 0RF No Action cyanocobalamin (vitamin B-12) 1,000 mcg/mL solution 100 mcg SQ QMONTH metformin 500 mg tablet 500 mg PO DAILY Patient Comments: TAKE 1 TABLET BY MOUTH ONCE DAILY simvastatin 40 mg tablet 40 mg PO HS Patient Comments: TAKE 1 TABLET BY MOUTH ONCE DAILY AT BEDTIME ferrous sulfate [FeroSul] 325 mg (65 mg iron) tablet 325 mg PO DAILY Patient Comments: TAKE 1 TABLET BY MOUTH ONCE DAILY levothyroxine 50 mcg tablet 50 mcg PO DAILY Patient Comments: TAKE 1 TABLET BY MOUTH ONCE DAILY IN THE MORNING ON AN EMPTY STOMACH Xarelto 15 mg Tablet 15 mg PO BIDWMEAL Qty: 32 0RF Rx Instructions: Samples available through the office Referrals Follow up/Referrals: Vitor Greenfield MD [Primary Care Provider] - See instructions Aj Luo MD [Staff Physician] - See instructions Activity Restrictions/Add. Instructions Additional Instructions/Restrictions: Call your family doctor to establish care for this visit to the emergency department and schedule follow-up within 48 hours to ensure improvement. If you have any worsening of your condition or any other concerning signs or symptoms, return to the emergency department or your primary care doctor for further evaluation. Call Dr. Luo's office for evaluation for wound VAC. Clinical Impressions Clinical Impression: Wound infection Discharge ED Provider: Aj Shin General Adult HPI General Chief complaint: Weakness Stated complaint: weakness, no appetite, wound on groin Time Seen by Provider: 09/01/23 10:52 Mode of Arrival: Wheelchair Source of Information: Relative Limitations: No Limitations Description of Symptoms (Recalled from ER Triage Doc. by RN): Family states the patient hasn't been eating well and has been weak. Also states she has a wound to right groin area that may be infected. Patient had a biopsy done to this area related to her cancer treatment. 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 Patient's family at bedside providing history. Patient has been done with chemotherapy for a couple of weeks at this point. Has stayed weak even since discontinuing chemotherapy. States that she has minimal p.o. intake, still making adequate urine and stool. 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 It has become malodorous, thick white discharge. Family states they are worried about infection here. Also worried about malnutrition. Patient has not had fevers, diarrhea, vomiting, or had any other complaints other than pain at the site. Over the past couple days, they state the patient has also been talking appropriately and responding to internal stimuli, mostly at night and does not appear to be getting any better or worse. Related Data Home Medications Medication Instructions Recorded Confirmed metformin 500 mg tablet 500 mg PO DAILY Diabetes 04/30/22 07/03/23 simvastatin 40 mg tablet 40 mg PO HS Cholesterol 04/30/22 07/03/23 ferrous sulfate 325 mg (65 mg 325 mg PO DAILY Supplement 06/24/23 07/03/23 iron) tablet (FeroSul) levothyroxine 50 mcg tablet 50 mcg PO DAILY Thyroid 06/25/23 07/03/23 cyanocobalamin (vitamin B-12) 100 mcg SQ QMONTH 07/03/23 07/03/23 1,000 mcg/mL injection solution Previous Rx's Medication Instructions Recorded rivaroxaban 15 mg tablet (Xarelto) 15 mg PO BIDWMEAL #32 tabs 06/26/23 cephalexin 500 mg capsule 1,000 mg (2 x 500 mg) PO BID 5 09/01/23 days #20 caps sulfamethoxazole 800 1 tab PO BID 5 days #10 tabs 09/01/23 mg-trimethoprim 160 mg tablet (Bactrim DS) Allergies Allergy/AdvReac Type Severity Reaction Status Date / Time No Known Allergies Allergy Verified 07/03/23 14:19 [facility] Disclaimer: The information contained in this section may have been updated after the patient was seen, as this information can be updated by other users. Medical History Anal squamous cell carcinoma COVID-19 Diabetes HTN (hypertension) Hyperlipidemia Hypothyroidism Paroxysmal A-fib Rectal cancer Tubular adenoma of colon UTI (urinary tract infection) Surgical History History of cholecystectomy Family History Other No significant family history Social History Smoking Status: Unknown if ever smoked alcohol intake: never current occupational status: unemployed Travel in the last 8 weeks: None ROS Obtained: Yes unobtainable due to mental status Physical Exam General General appearance: alert, in no apparent distress, cachectic and other (Intermittently answering questions appropriately. Chronically ill-appearing) ENT ENT exam: Present mucous membranes dry Respiratory Respiratory exam: Present normal lung sounds bilaterally; Absent respiratory distress Cardiovascular Cardiovascular exam: Present normal rhythm and tachycardia Abdominal Exam Abdominal exam: Present soft and tenderness (Lower abdomen and suprapubic area. No evidence of peritonitis.); Absent distention Comment: Ileostomy in place right side of abdomen appears pink, well stool output in bag Extremities Exam Extremities exam: Present tenderness (Tenderness swelling right groin with overlying ulcerated wound. Malodorous, thick white discharge. Minimally tender.) and edema (Nonpitting edema right lower extremity, improving since previous interaction) Neurological Exam Neurological exam: Present alert and normal gait (With significant assistance); Absent oriented X3 Medical Decision Making Medical Records Medical records reviewed: Yes I reviewed the patient's medical records. Tim Inquiry Pt receiving controlled substance: No Tim was queried for this patient: No Vital Signs: 09/01/23 10:51 09/01/23 11:00 09/01/23 11:36 Temperature 97.9 F Temperature Source Oral Pulse Rate 116 H 98 H Pulse Rate [Radial] 125 H Respiratory Rate 18 Blood Pressure 96/68 L 93/67 L Blood Pressure [Right Arm] 100/62 L Blood Pressure Mean [Right Arm] 74 Blood Pressure Source [Right Arm] Automatic Cuff Blood Pressure Position [Right Arm] Sitting 02 Sat by Pulse Oximetry 98 96 98 Oxygen Delivery Method Room Air Room Air 09/01/23 12:00 09/01/23 12:30 09/01/23 12:45 Temperature Temperature Source Pulse Rate 94 H 91 H 88 Pulse Rate [Radial] Respiratory Rate Blood Pressure 100/63 L 101/65 L 106/59 L Blood Pressure [Right Arm] Blood Pressure Mean [Right Arm] Blood Pressure Source [Right Arm] Blood Pressure Position [Right Arm] 02 Sat by Pulse Oximetry 98 98 100 Oxygen Delivery Method Room Air 09/01/23 13:30 09/01/23 14:00 09/01/23 14:30 Temperature Temperature Source Pulse Rate 90 86 84 Pulse Rate [Radial] Respiratory Rate Blood Pressure 108/64 L 106/63 L 103/70 L Blood Pressure [Right Arm] Blood Pressure Mean [Right Arm] Blood Pressure Source [Right Arm] Blood Pressure Position [Right Arm] 02 Sat by Pulse Oximetry 100 100 99 Oxygen Delivery Method Room Air Room Air 09/01/23 15:00 Temperature Temperature Source Pulse Rate 80 Pulse Rate [Radial] Respiratory Rate Blood Pressure 102/60 L Blood Pressure [Right Arm] Blood Pressure Mean [Right Arm] Blood Pressure Source [Right Arm] Blood Pressure Position [Right Arm] 02 Sat by Pulse Oximetry 97 Oxygen Delivery Method Room Air Lab Data Lab Results 09/01/23 11:20: WBC 18.7 H, RBC 2.68 L, Hgb 8.7 L, Hct 28.1 L, MCV 104.9 H, MCH 32.5 H, MCHC 31.0 L, RDW 16.0, Plt Count 547 H, MPV 8.2, Neut % (Auto) 95.8 H, L ymph % (Auto) 1.7 L, [place] % (Auto) 2.3, Eos % (Auto) 0.1, Baso % (Auto) 0.1, N eut # (Auto) 17.9 H, Lymph # (Auto) 0.3 L, [place] # (Auto) 0.4, Eos # (Auto) 0.0, Baso # (Auto) 0.0, Total Counted 100, Neutrophils % (Manual) 95 H, Lymphocytes % (Manual) 3 L, Monocytes % (Manual) 2, Platelet Estimate Slight increase, Hypochromasia 1+, Anisocytosis 1+, Macrocytosis 1+, Ovalocytes 1+, Sodium 134 L, Potassium 4.2, Chloride 102, Carbon Dioxide 23, Anion Gap 13.2, BUN 38 H, Creatinine 0.90, Estimated Creat Clear 30, Estimated GFR 60, Est GFR ( Amer) 73, Glucose 118 H, Lactate 1.2, Calcium 9.4, Total Bilirubin 0.7, AST 168 H, ALT 74, Alkaline Phosphatase 113, Total Protein 6.0 L, Albumin 2.8 L, Globulin 3.2, Albumin/Globulin Ratio 0.9 L 09/01/23 11:20 09/01/23 11:20 Orders (Tests/Meds): ED MEDICATIONS Discontinued Medications Generic Name Dose Route Start Last Admin Trade Name Narcisa PRN Reason Stop Dose Admin Lactated Ringer's 1,000 mls @ 999 mls/hr 09/01/23 11:08 09/01/23 11:18 Lactated Ringer's 1000 Ml Bag IV 09/01/23 12:08 999 mls/hr .Q1H1M ONE Administration Lactated Ringer's 1,000 mls @ 999 mls/hr 09/01/23 12:44 09/01/23 12:48 Lactated Ringer's 1000 Ml Bag IV 09/01/23 13:44 999 mls/hr .Q1H1M ONE Administration ORDERS Category Date Time Status CXR --portable [XR chest portable] Stat Exams 09/01/23 11:08 Completed CBC w/Auto Diff [Complete Blood Count Auto Diff] Stat Lab 09/01/23 11:20 Completed CMP [Comprehensive Metabolic Panel] Stat Lab 09/01/23 11:20 Completed Lactic Acid Stat Lab 09/01/23 11:20 Completed Blood Culture Stat Micro 09/01/23 11:37 Received Wound Culture and Gram Stain Stat Micro 09/01/23 11:09 Received Medical Decision Narrative: 82-year-old female history 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 Patient's family at bedside providing history. Patient has been done with chemotherapy for a couple of weeks at this point. Has stayed weak even since discontinuing chemotherapy. States that she has minimal p.o. intake, still making adequate urine and stool. 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 It has become malodorous, thick white discharge. Family states they are worried about infection here. Also worried about malnutrition. Patient has not had fevers, diarrhea, vomiting, or had any other complaints other than pain at the site. Over the past couple days, they state the patient has also been talking appropriately and responding to internal stimuli, mostly at night and does not appear to be getting any better or worse. History obtained with patient's family. On arrival, patient tachycardic, normotensive. Afebrile, saturating appropriately on room air. Chronically ill- appearing, cachectic. In no acute distress. She does have tenderness about her suprapubic area of her abdomen, no evidence of peritonitis. Ileostomy appears well. Right groin mass with overlying ulceration. Thick, white, purulent appearing discharge and wound which is malodorous. No surrounding erythema. Differential includes wound infection, UTI, pneumonia, deconditioning, malnutrition, sepsis, among others. Patient given IV fluids. Workup significant for leukocytosis, anemia 8.7. Patient's electrolytes are nonactionable. Urinalysis pending, but patient to be discharged on Bactrim and Keflex for wound. Also recommended the patient follow-up with surgery regarding possible consultation for wound VAC placement. Family agreeable to this plan. Because patient at baseline without signs or symptoms of clinical decompensation, deemed appropriate for discharge. Results were relayed to patient daughter who voiced understanding and were agreeable to outpatient management and follow up. I discussed my clinical impression with patient daughter and answered all questions. At this time, the evidence for any other entities in the differential is insufficient to warrant any further testing or ED observation. This was explained as well. Advisory was given that persistent or worsening symptoms require further evaluation. I confirmed the understanding of this discussion. Critical Care Critical Care Time Critical Care Time: No
[2023-09-01 11:37] LABS: Basophils % 0.1 % (0.1-2.0); Eosinophils % 0.1 % (0.1-12.0); Hematocrit 28.1 % (37.0-47.0); Hemoglobin 8.7 g/dL (12.2-16.2); Lymphocytes # 0.3 K/mm3 (0.7-4.5); Lymphocytes % 1.7 % (10-50); Mean Corpuscular Hemoglobin 32.5 pg (27.0-31.2); Mean Corpuscular Volume 104.9 fl (81-99); Mean Platelet Volume 8.2 fl (7.4-10.4); Monocytes # 0.4 K/mm3 (0.1-1.0); Monocytes % 2.3 % (1.7-9.3); Neutrophils # 17.9 K/mm3 (1.8-7.8); Neutrophils % 95.8 % (37.0-80.0); Platelet Count 547 K/mm3 (142-424); Red Blood Count 2.68 M/mm3 (4.20-5.40); White Blood Count 18.7 K/mm3 (4.8-10.8)
[2023-09-01 11:40] LABS: MANUAL DIFFERENTIAL MANUAL DIFFERENTIAL (MANUAL DIFF)
[2023-09-01 11:46] LABS: Lactic Acid 1.2 mmol/L (0.7-2.1)
[2023-09-01 11:48] LABS: Alanine Aminotransferase 74 U/L (12-78); Albumin Level 2.8 g/dl (3.5-5.0); Albumin/Globulin Ratio 0.9 (1.1-1.8); Alkaline Phosphatase 113 U/L (38-126); Anion Gap 13.2 mEq/L (5-15); Aspartate Amino Transferase 168 U/L (14-36); Bilirubin,Total 0.7 mg/dl (0.2-1.3); Blood Urea Nitrogen 38 mg/dl (7-17); Calcium 9.4 mg/dl (8.4-10.2); Carbon Dioxide 23 mmol/L (22.0-30.0); Chloride 102 mmol/L (98-107); Creatinine Clearance Estimated 30 mL/min (50-200); Estimated Glomerular Filt Rate 60 ml/min (>60); GFR (African American) 73 ML/MIN (>60); Globulin 3.2 g/dL (1.3-3.2); Glucose 118 mg/dl (74-100); Potassium 4.2 mmoL/L (3.5-5.1); Sodium 134 mmol/L (136-145)
[2023-09-01 11:57] LABS: Lymphocytes % 3 % (10-50); Monocytes % 2 % (2-9); Neutrophils % 95 % (42-76); Total Cells Counted 100
[2023-09-01 11:58] LABS: Anisocytosis 1+; Hypochromasia 1+; Macrocytosis 1+; Ovalocytes 1+; Platelet Estimate Slight Increase
--- NOTE | 2023-09-01 12:07 | PC.NURSE ---
Pure wick placed on pt
--- NOTE | 2023-09-01 12:34 | PC.NURSE ---
Dr. Shin at BS to update pt/family on results and POC
--- NOTE | 2023-09-03 11:42 | PC.NURSE ---
reviewed wound culture results with , pt dc with cephalexin, NTD
--- NOTE | 2023-09-05 01:37 | PC.NURSE ---
prelim blood cx negative, patient d/c'd on atb's; no changes pending final results
--- NOTE | 2023-09-08 08:56 | PC.NURSE ---
final report for wound culture, pt dc with appropriate antibiotic for susceptibility.
== END 2023-09-01 15:50 | disposition home or self-care (01) ==
PROVIDERS: Emergency Provider Emergency Medicine; PCP Family Medicine
DX: L08.9 Local infection of the skin and subcutaneous tissue, unspecified; B96.5 Pseudomonas (aeruginosa) (mallei) (pseudomallei) as the cause of diseases classified elsewhere; I11.9 Hypertensive heart disease without heart failure; I10 Essential (primary) hypertension; E78.5 Hyperlipidemia, unspecified; E03.9 Hypothyroidism, unspecified; I48.0 Paroxysmal atrial fibrillation; Z79.84 Long term (current) use of oral hypoglycemic drugs; Z79.01 Long term (current) use of anticoagulants; Z85.048 Personal history of other malignant neoplasm of rectum, rectosigmoid junction, and anus; T81.49XA Infection following a procedure, other surgical site, initial encounter
CPT/HCPCS: 71045; 80053; 83605; 85007; 85025; 87040; 87070; 87205; 96360; 96361; 99285; J1642